=== PATIENT | male | born 2005 | race Caucasian/White ===

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

== ENCOUNTER 2025-01-11 11:30 | Outpatient (OUT) | payer OTHER, SELFPAY ==
--- NOTE | 2025-01-11 11:32 | XR_ITS ---
[address] [address] Patient Name: DARIN TOVAR MRN: [id number] date: 2005 Sex: M Assigned Patient Location: RAD Current Patient Location: [facility] Accession/Order Number: [id number] Exam Date: 01/11/2025 11:47 Report Date: 01/11/2025 11:47 At the request of: MERLINE CHAIDEZ MD Procedure: XR chest 2V Chest 2 views CLINICAL HISTORY: Acute maxillary sinusitis COMPARISON: Chest 05/25/2022 FINDINGS: Heart normal in size. Lungs are clear. No free air. XR/XR chest 2V IMPRESSION: NO ACUTE CARDIOPULMONARY ABNORMALITY. Impression dictated by: Cullen Morgan Jr., D.OPortillo 01/11/2025 11:47 AM Dictation Location: [place] [address] Electronically authenticated by: [id number] Y Date: 01/11/2025 11:47
== END 2025-01-11 11:31 | disposition home or self-care (01) ==
LOC: RAD 11:30
PROVIDERS: PCP Family Medicine; Visit Provider Family Medicine
DX: J01.00 Acute maxillary sinusitis, unspecified (principal)
CPT/HCPCS: 71046

== ENCOUNTER 2025-03-18 04:25 | Emergency (ER) | payer OTHER, SELFPAY ==
[2025-03-18 04:30] VITALS: BP 140/84; PULSE 90; TEMP 36.7; O2SAT 98; BMI 22.8
--- OUTSIDE RECORDS SUMMARY | 2025-03-18 04:32 | XMS_ITS | CCD ---
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 Name Role Phone Nabila Cheema Unavailable MENA SEQUEIRA Attending Unavailable HUA, MENA Consulting Unavailable HUA, MEAN Admitting Unavailable KAYLYNN, DR ERIKA Nevarez Primary Care Unavailable BETTY, CARLOS Consulting Unavailable CHAIDEZ, DR ERIKA Nevarez Admitting Unavailable CHAIDEZ, DR ERIKA Nevarez Attending Unavailable CHAIDEZ, DR ERIKA Nevarez Consulting Unavailable CHAIDEZ, DR ERIKA Nevarez Primary Care Unavailable CHAIDEZ, DR ERIKA Nevarez Admitting Unavailable CHAIDEZ, DR ERIKA Nevarez Attending Unavailable CHAIDEZ, DR ERIKA Nevarez Consulting Unavailable CHAIDEZ, DR ERIKA Nevarez Primary Care Unavailable CHAIDEZ, DR ERIKA Nevarez Primary Care Unavailable CHAIDEZ, DR ERIKA Nevarez Admitting Unavailable CHAIDEZ, DR ERIKA Nevarez Attending Unavailable CHAIDEZ, DR ERIKA Nevarez Consulting Unavailable CHAIDEZ, DR ERIKA Nevarez Primary Care Unavailable CHAIDEZ, DR ERIKA Nevarez Admitting Unavailable CHAIDEZ, DR ERIKA Nevarez Attending Unavailable WEST, DR MALGORZATA Adames Consulting Unavailable CHAIDEZ, DR ERIKA Nevarez Consulting Unavailable MISC, DR CAPPS Attending Unavailable MISC, DR CAPPS Consulting Unavailable MISC, DR CAPPS Admitting Unavailable CHAIDEZ, DR ERIKA Nevarez Primary Care Unavailable MISC, DR CAPPS Attending Unavailable MISC, DR CAPPS Consulting Unavailable MISC, DR CAPPS Admitting Unavailable CHAIDEZ, DR ERIKA Nevarez Primary Care Unavailable ERIKA CHAIDEZ Primary Care Physician [phone] ERIKA CHAIDEZ Referring Unavailable ERIKA CHAIDEZ Primary Care Unavailable ANTMADDIE HEDRICK Attending Unavailable CHAIDEZ PROVIDERERIKA Admitting Unavailab le CHAIDEZ PROVIDERERIKA Attending Unavailab le CHAIDEZ PROVIDER, ERIKA Referring Unavailab le AntMaddie hedrick Consulting Unavailable Maddie Mello Consulting Unavailable Erika Chaidez Unavailable Leatha Elena Unavailable MD Erika Chaidez Primary Care Provider [phone] MD Erika Chaidez Attending Provider MD Erika Chaidez Primary Care Provider [phone] KAM Jeff Attending Provider Erika Chaidez Primary Care Unavailable Erika Chaidez Attending Unavailable Erika Chaidez Admitting Unavailable Ashli Jeff Admitting Unavailable Ashli Jeff Attending Unavailable Erika Chaidez Primary Care Unavailable JAIME SAMS Attending Unavailable JAIME SAMS Attending Unavailable JAIME SAMS Attending Unavailable Erika Chaidez MD Primary Care Provider EricaacheLeatha alford APRN Attending Provider Erika Chaidez MD Attending Provider Allergies Allergy Classification Reported Allergen(s) Allergy Type Date of Onset Reaction(s) Facility (9 sources) Codeine; Translations: [CODEINE] Drug Allergy 12-05-2019 [facility] Repository (1 source) Codeine Drug Allergy [facility] Repository (1 source) NSAIDs Drug allergy (disorder) [facility] Repository (1 source) Codeine Drug Allergy 04-12-2024 [facility] Repository Medications Current Medications Medication Drug Class(es) Dates Sig (Normalized) Sig (Original) ARIPiprazole (7 sources) Atypical Antipsychotic Abilify A ctive cefdinir 300 mg oral capsule (3 sources) Cephalosporin Antibacterial Start: 01-10-2025 take 1 capsule by mouth twice daily Cefdinir 300 mg capsule Active 300 MG PO Twice daily January 10, 2025 12:00am Complies with drug therapy Start: 08-17-2022 Cefdinir 300 M G as directed Orally bid for 7 days Aug, Active cloNIDine (8 sources) Central alpha-2 Adrenergic Agonist cloNIDine Active fluticasone propionate 0.05 mg/actuat metered dose nasal spray (20 sources) Corticosteroid Start: 05-09-2024 take 2 spray(s) nasal route once daily Fluticasone Propionate 50 mcg/actuation spray,suspension Active 0 .ROUTE .COMPLEX May 09, 2024 11:32am INSTILL 2 SPRAYS INTO EACH NOSTRIL DAILY Complies with drug therapy Start: 04-11-2024 End: 05-09-2024 take 1 spray(s) nasal route once daily Fluticasone Propionate 50 mcg/actuation spray,suspension Discontinued 2 SPRAY INTRANASAL Daily April 11, 2024 12:00am May 09, 2024 11:32am administer into each nostril Start: 03-08-2024 End: 03-20-2024 Fluticasone Propionate 50 mcg/actuation spray,suspension Discontinued INTRANASAL March 08, 2024 12:00am March 20, 2024 11:05am Start: 05-20-2023 take 2 spray(s) nasa l route once daily Fluticasone Propionate 50 MCG/ACT 2 spray in each nostril Nasally Once a day for 30 days May, Active Start: 04-27-2021 take 2 spray(s) nasa l route once daily Fluticasone Propionate 50 MCG/ACT 2 sprays Nasally Once a day for 14 day(s) 2 sprays to each nostril daily until your symptoms improve Apr, Active hydrOXYzine hydrochloride 25 mg oral tablet (19 sources) Antihistamine Start: 11-09-2023 take 1 tablet by mouth once daily at bedtime Hydroxyzine Hcl 25 mg tablet Active 25 MG PO Daily at bedtime November 09, 2023 12:00am Complies with drug therapy hydrOXYzine HCl Active Morgan Hill (1 source) Morgan [place] Active lithium carbonate 300 mg oral capsule (11 sources) Start: 11-09-2023 take 1 capsule by mouth once daily at bedtime [place] Carbonate 300 mg capsule Active 300 MG PO Daily at bedtime November 09, 2023 12:00am Complies with drug therapy Medrol Dose Pack as directed (4 sources) Start: 04-27-2021 Medrol Dose Pack as directed as directed orally as directed for 6 days Apr, Active sertraline 100 mg oral tablet (20 sources) Serotonin Reuptake Inhibitor Start: 11-09-2023 take 1 tablet by mouth once daily Sertraline (Zoloft) 100 mg tablet Active 100 MG PO Daily November 09, 2023 12:00am Complies with drug therapy Start: 11-09-2023 End: 03-08-2024 Sertraline (Zoloft) 50 mg ta blet Discontinued 75 MG PO Daily November 09, 2023 12:00am March 08, 2024 12:42pm Zoloft Active Completed/Discontinued Medications Medication Drug Class(es) Dates Sig (Normalized) Sig (Original) amoxicillin 500 mg oral tablet (10 sources) Penicillin-class Antibacterial Start: 01-08-2025 End: 01-10-2025 take 1 tablet by mouth three times daily Amoxicillin 500 mg tablet Discontinued 500 MG PO Three times daily January 08, 2025 12:00am January 10, 2025 1:14pm Start: 03-08-2024 End: 03-20-2024 take 1 capsule by mouth twice daily Amoxicillin 500 mg capsule Discontinued 500 MG PO Twice daily 02 04March 08, 2024 12:00am March 20, 2024 10:39am amoxicillin 875 mg / clavulanate 125 mg oral tablet (10 sources) Penicillin-class Antibacterial Start: 04-12-2024 End: 09-22-2024 take 1 tablet by mouth twice daily Amoxicillin-Pot Clavulanate 875-125 mg tablet Discontinued 1 TAB PO Twice daily 02 04April 12, 2024 12:00am September 22, 2024 11:45am Start: 04-27-2021 take 1 tablet by sylvie th every twelve hours Amoxicillin-Pot Clavulanate 875-125 MG 1 tablet Orally every 12 hrs for 10 day(s) Apr, Active azithromycin 250 mg oral tablet (3 sources) Macrolide Antimicrobial Start: 11-07-2024 End: 01-08-2025 Azithromycin 250 mg tablet Discontinued 0 PO daily 6 5 November 07, 2024 12:00am January 08, 2025 9:14am Take 2 on day 1 and then take 1 for the next 4 days (days 2-5) mirtazapine 15 mg oral tablet (11 sources) Start: 11-09-2023 End: 03-20-2024 take 7.5 mg by mouth once daily at bedtime Mirtazapine (Remeron) 15 mg tablet Discontinued 7.5 MG PO Daily at bedtime November 09, 2023 12:00am March 20, 2024 11:05am sulfamethoxazole 800 mg / trimethoprim 160 mg oral tablet (10 sources) Dihydrofolate Reductase Inhibitor Antibacterial, Sulfonamide Antimicrobial Start: 03-20-2024 End: 04-12-2024 take 1 tablet by mouth twice daily Sulfamethoxazole- Trimethoprim 800-160 mg tablet Discontinued 1 TAB PO Twice daily March 20, 2024 12:00am April 12, 2024 10:41am Start: 06-19-2022 take 1 tablet by sylvie th every twelve hours Sulfamethoxazole-Trimethoprim 800-160 MG 1 tablet Orally Twice a day for 10 day(s) Jun, Active Problems Active Problems Problem Classification Problem Date Documented Date Episodic/Chronic Anxiety disorders (2 sources) Generalized anxiety disorder; Translations: [Generalized anxiety disorder] Onset: 04-23-2016 Chronic Cardiac dysrhythmias (1 source) Palpitations; Translations: [PALPITATIONS] Onset: 05-27-2022 Episodic Fever of unknown origin (7 sources) Fever; Translations: [Fever, unspecified] Onset: 04-12-2024 04-12-2024 Episodic Genitourinary symptoms and ill-defined conditions (1 source) Dysuria; Translations: [Dysuria] Episodic Immunizations and screening for infectious disease (4 sources) Contact with or exposure to other viral diseases; Translations: [Exposure to 2019 novel coronavirus] 03-08-2024 Episodic Lymphadenitis (12 sources) Mesenteric lymphadenitis; Translations: [Nonspecific mesenteric lymphadenitis] 11-09-2023 Episodic Malaise and fatigue (15 sources) Other fatigue; Translations: [Fatigue] Onset: 04-10-2022 Episodic Miscellaneous mental health disorders (1 source) Insomnia disorder related to another mental disorder; Translations: [Insomnia due to mental disorder] Onset: 01-26-2017 Chronic Mood disorders (4 sources) Major depressive disorder, recurrent severe without psychotic features; Translations: [YOLANDA DEPRESS RECURR SEV W/O PSYCH] Onset: 09-16-2021 Chronic Nausea and vomiting (10 sources) Nausea; Translations: [Nausea] 11-29-2023 Episodic Noninfectious gastroenteritis (4 sources) Gastroenteritis; Translations: [Noninfective gastroenteritis and colitis, unspecified] 09-23-2024 Episodic Other and unspecified benign neoplasm (9 sources) Hemangioma of liver; Translations: [Hemangioma of intra-abdominal structures] 11-29-2023 Episodic Other and unspecified benign neoplasm (1 source) Hemangioma of intra-abdominal structures; Translations: [Hemangioma of intra-abdominal structures] 11-29-2023 Episodic Other liver diseases (10 sources) Liver mass; Translations: [Hepatomegaly, not elsewhere classified] 11-09-2023 Episodic Other lower respiratory disease (6 sources) Persistent cough; Translations: [Persistent cough] 04-12-2024 Episodic Other lower respiratory disease (1 source) Chronic cough; Translations: [Chronic cough] Onset: 04-12-2024 Episodic Other nervous system disorders (1 source) Taste sense altered; Translations: [Parageusia] Episodic Other upper respiratory disease (1 source) Disorder of vocal cord; Translations: [Other diseases of vocal cords] Episodic Other upper respiratory infections (9 sources) Sinusitis; Translations: [Chronic sinusitis, unspecified] Onset: 04-27-2021 Resolved: 04-27-2021 Chronic Other upper respiratory infections (20 sources) Acute pharyngitis, unspecified; Translations: [Acute maxillary sinusitis, unspecified] Onset: 10-01-2015 Resolved: 04-27-2021 Episodic Otitis media and related conditions (18 sources) Otitis media; Translations: [Otitis media, unspecified, bilateral] 03-08-2024 Episodic Unclassified (1 source) PERSONAL HISTORY OF COVID-19; Translations: [PERSONAL HISTORY OF COVID-19] Onset: 05-27-2022 Unclassified (3 sources) CONTACT W/AND (SUSP) EXPOS COVID-19; Translations: [CONTACT W/AND (SUSP) EXPOS COVID-19] Onset: 07-03-2021 Unclassified (2 sources) Telehealth Audio/video Visit; Translations: [Telehealth Audio/video Visit] Onset: 10-02-2024 Unclassified (2 sources) Med Management; Translations: [Med Management] Onset: 08-14-2024 Viral infection (1 source) Disease caused by 2019-nCoV; Translations: [COVID-19] Past or Other Problems Problem Classification Problem Date Documented Date Episodic/Chronic Inflammation; infection of eye (except that caused by tuberculosis or sexually transmitteddisease) (1 source) Acute conjunctivitis; Translations: [Unspecified acute conjunctivitis, bilateral] Onset: 01-06-2016 Episodic Mycoses (1 source) Tinea corporis; Translations: [Tinea corporis] Onset: 02-28-2015 Episodic Nonspecific chest pain (5 sources) Chest pain, unspecified; Translations: [Chest pain] Onset: 02-01-2018 Episodic Other liver diseases (3 sources) Hepatomegaly, not elsewhere classified; Translations: [Other specified disorders of liver] Onset: 11-26-2023 11-09-2023 Episodic Unclassified (1 source) CONTACT W/AND (SUSP) EXPOS COVID-19; Translations: [CONTACT W/AND (SUSP) EXPOS COVID-19] Onset: 07-01-2021 Unclassified (1 source) Cough, unspecified type R05.9 Unclassified (1 source) Need for prophylactic vaccination and inoculation against unspecified single bacterial disease; Translations: [Need for prophylactic vaccination and inoculation against unspecified single bacterial disease] Onset: 02-01-2018 Unclassified (1 source) Vaccine product containing only acellular Bordetella pertussis and Clostridium tetani and Corynebacterium diphtheriae antigens (medicinal product); Translations: [Flpgwpxmqm-wxwsveo-y ertussis, combined [DTP] [DtaP]] Onset: 02-01-2018 Results Test Name Value Interpretation Reference Range Facility Documentationon 11-29-2024 Documentation [id number] Guido Tovar 2005 M Date Provider Department Center 11/29/2024 JAIME BROOKS [facility] PS[facility]CH Mick Heal No family history on file Normal [facility] Influenza virus B Ag [Presen ce] in Upper respiratory specimen by Rapid immunoassayon 11-07-2024 FLUBV Ag IA.rapid Ql (Nph) Negative [facility] No Panel Informationon 11-07 Influenza Type A (Rapid) Negative [facility] POC SARS CoV-2 Antigen Negative [facility] 36on 10-02-2024 36 Please send again Normal [facility] 37on 10-02-2024 37 Clinic Rules -Clinic rules include the no show policy, that termination from the clinic can be the result of missing 2 appointments in a row or 3 appointments in any 12 month period through either no-shows or cancellations with less than 24 hours' notice. Patient expressed understanding. - My information given to the patient and informed my hours, from 8:30am to 4:30pm and should get back to the patient within 24 business hours. Patient expressed understanding. - Patient made aware that in case of emergency-thoughts of , of self or others or patient begins experiencing side effects or hallucinations, call 911 or go to the closest emergency room. Patient expressed understanding. - Patient was also made aware of 24 hour access to psychiatric care available through [facility] Psychiatry clinic - call [phone] to leave a message with the physician (regular office hours are Wednesday-Wednesday 8:30am-4:30pm), and for emergencies after hours or on weekends call the hospital gas burner operator at [phone] and ask to talk to on-call front loader residential driver physician. Pharmacological management: - Increase Morgan Hill to 600 mg at bedtime for mood due to patient first reported hypomanic episode. In the future please ensure the patient continues to be on a mood stabilizer. - CONTINUE Hydroxyzine 25 mg (1-3 tabs) as needed for anxiety - Continue Zoloft 175 mg at night for Depression and Anxiety [facility] Behavioral Health Telemedici somers 10-02-2024 Behavioral Health Telemedicine [id number] Guido Tovar 2005 [facility] Provider Department [place] 10/02/2024 JAIME BROOKS [facility] PSYCH Mick Heal No family history on file Level of Service:13959 [place] OFFICE/OUTPATIENT ESTABLISHED MOD MDM 30 MIN () Reason for Visit and Comments: Med Management [[id number]] Telehealth Audio/video Visit [871] Normal [facility] Refillo 10-02-2024 Refill [id number] Guido Tovar 2005 M Date Provider Department [place] 10/02/2024 RUFINA BANDA [facility] PSYCH Mick Heal No family history on file Reason for Visit and Comments: Med Refill [[id number]] Normal [facility] [place] 09-29-2024 Refill [id number] Guido Tovar 2005 M Date Provider Department [place] 09/29/2024 JAIME BROOKS [facility] PSYCH Mick Heal No family history on file Reason for Visit and Comments: Med Refill [[id number]] [facility] 36on 09-04-2024 36 Attempted to call patient on 09/04/2024 at 1510 at [phone] and patient was unable to pickup the phone, and there was no option to leave a voicemail as his voicemail box has not been setup. I sent a reply to his [employer] message indicating possible manic/mixed mood episode, and discussed case with Dr. Cook. Plan: Restart Morgan Hill 300mg nightly Recommend patient reach out in 2-3 days with an update on how he is doing. Recommend patient obtain labs ordered October 2023 including CBC, CMP, and TSH with reflex. Stalin Mendoza MD PGY-3 Psychiatry Normal [facility] 37on 08-14-2024 37 Clinic Rules -Clinic rules include the no show policy, that termination from the clinic can be the result of missing 2 appointments in a row or 3 appointments in any 12 month period through either no-shows or cancellations with less than 24 hours' notice. Patient expressed understanding. - My information given to the patient and informed my hours, from 8:30am to 4:30pm and should get back to the patient within 24 business hours. Patient expressed understanding. - Patient made aware that in case of emergency-thoughts of , of self or others or patient begins experiencing side effects or hallucinations, call 911 or go to the closest emergency room. Patient expressed understanding. - Patient was also made aware of 24 hour access to psychiatric care available through [facility] Psychiatry clinic - call [phone] to leave a message with the physician (regular office hours are Wednesday-Wednesday 8:30am-4:30pm), and for emergencies after hours or on weekends call the hospital gas burner operator at [phone] and ask to talk to on-call front loader residential driver physician. Pharmacological management: - DISCONTINUE [place] 300 mg at bedtime for mood due to patient reported overall mood improvement and feels that lithium is no longer needed. - CONTINUE Hydroxyzine 25 mg (1-3 tabs) as needed for anxiety - Continue Zoloft 175 mg at night for Depression and Anxiety Normal [facility] Behavioral Health Telemedici [facility] 08-14-2024 Behavioral Health Telemedicine [id number] Guido Tovar 2005 M Date Provider Department Center 08/14/2024 Jackie4-JAIME SAMS [facility] PSYCH Mick Heal No family history on file Level of Service:03854 [place] OFFICE/OUTPATIENT ESTABLISHED MOD MDM 30 MIN (GC) Reason for Visit and Comments: Med Management [[id number]] [facility] [place] 08-06-2024 Refill [id number] Guido Tovar 2005 [facility] Provider Department [place] 08/06/2024 [id number] MENDOZA [facility] PSYCH Mick Heal No family history on file Reason for Visit and Comments: Med Refill [[id number]] [facility] 36on 07-27-2024 36 Pt scheduled 3-3 [facility] 36 Called and unable to lvm for pt to schedule appt for medication refills. not set up [facility] Refill [id number] Guido Tovar 2005 [facility] Provider Department [place] 07/27/2024 RUFINA BANDA [facility] PSYCH Mick Heal No family history on file Reason for Visit and Comments: Med Refill [[id number]] [facility] 07-24-2024 Refill [id number] Guido Tovar 2005 [facility] Provider Department [place] 07/24/2024 RUFINA BANDA [facility] PSYCH Mick Heal No family history on file Reason for Visit and Comments: Med Refill [[id number]] [facility] 07-22-2024 Refill [id number] Guido Tovar 2005 [facility] Provider Department [place] 07/22/2024 JAIME BROOKS [facility] PSYCH Mick Heal No family history on file Reason for Visit and Comments: Med Refill [[id number]] [facility] [place] 07-09-2024 Refill [id number] Guido Tovar 2005 Date Provider Department [place] 07/09/2024 JAIME BROOKS [facility] PSYCH Mick Heal No family history on file Reason for Visit and Comments: Med Refill [[id number]] [facility] 36on 06-21-2024 36 Per mom she needs refill of both dosages. If any questions please call [facility] [place] 06-21-2024 Refill [id number] Guido Tovar 2005 M Date Provider Department Center 06/21/2024 403JAIME SHIN C PSYCH Mick Heal No family history on file Normal [facility] [place] 06-12-2024 Refill [id number] Guido Tovar 2005 Date Provider Department [facility] No family history on file Reason for Visit and Comments: Med Refill [[id number]] Normal [facility] [place] 05-15-2024 Refill [id number] Guido Tovar 2005 Date Provider Department [place] 05/15/2024 [facility] Mick Heal No family history on file Reason for Visit and Comments: Med Refill [[id number]] [facility] 05-12-2024 Refill [id number] Guiod Tovar 2005 Date Provider Department [place] 05/12/2024 1286-MARÍA ELENA, HARMANDEEP [facility] PSY[facility] Mick Heal No family history on file Reason for Visit and Comments: Med Refill [[id number]] [facility] Refill [id number] Guido Tovar 2005 Date Provider Department [place] 05/12/2024 [facility] Heal No family history on file Reason for Visit and Comments: Med Refill [[id number]] Normal [facility] [place] 05-06-2024 Refill [id number] YuryGuido 2005 Date Provider Department Center 05/06/2024 1286-MARÍA ELENA, HARMANDEEP [facility] PSY[facility] Mick Heal No family history on file Reason for Visit and Comments: Med Refill [[id number]] Normal [facility] [place] 04-27-2024 Refill [id number] YruyGuido 2005 Date Provider Department [place] 04/27/2024 1286-MARÍA ELENA, HARMANDEEP [facility] PSY[facility] Mick Heal No family history on file Reason for Visit and Comments: Med Refill [[id number]] Normal [facility] No Panel InformationOrdered By: Ashli Jeff on 04-12-2024 Quick Strep (POC) [facility] XR chest 2V*on 04-12-2024 XR chest 2V* [facility] [place] [address] XRay Report Signed Patient: Guido Tovar MR#: [id number] 1 : 2005 Acct:[id number] Age/Sex: 18 / M ADM Date: 04/12/24 Loc: XDUC Room: Type: [facility] Attending Dr: Ashli Jeff APRN Copies to: Ashli Jeff APRN Ordering Provider: Ashli Jeff APRN Date of Service: 04/12/24 XR/XR chest 2V*: r/o pneumonia Chest 2 views CLINICAL HISTORY: Sore throat fever fatigue for 3 days COMPARISON: None FINDINGS: Heart normal in size. Lungs are clear. No free air. XR/XR chest 2V* IMPRESSION: NO ACUTE CARDIOPULMONARY ABNORMALITY. Impression dictated by: Cullen Morgan Jr., D.O.04/12/2024 12:08 PM Dictation Location: [place] [address] Transcribed By: [facility] 04/12/24 1208 Dictated By: Cullen Morgan Jr, DO 04/12/24 1206 Signed By: 04/12/24 1208 Normal [facility] [place] 03-24-2024 Refill [id number] Guido Tovar 2005 M Date Provider Department Center 03/24/2024 JAIME BROOKS [facility] PSYCH Mick Heal No family history on file Reason for Visit and Comments: Med Refill [[id number]] Normal [facility] Influenza virus A and B and SARS-CoV-2 (COVID-19) RNA panel - Respiratory system specon 03-08-2024 Influenza virus A and B RNA and SARS-CoV-2 (COVID-19) N gene panel NICHOLAS+probe (Resp) Negative [facility] Laboratory - Microbiology an d Antimicrobial susceptibilityon 03-08-2024 SARS-CoV-2 (COVID-19) RNA NICHOLAS+probe Ql (Unsp spec) Negative [facility] No Panel InformationOrdered By: Ashli Jeff on 03-08-2024 Quick Strep (POC) [facility] No Panel Informationon 03-08 POC Influenza B (NICHOLAS) Negative [facility] Ref[place] 02-23-2024 Refill [id number] YuryGuido 2005 M [facility] Provider Department Center 02/[facility] Mick Heal No family history on file Reason for Visit and Comments: Med Refill [[id number]] Normal [facility] [place] 01-25-2024 Refill [id number] YuryGuido 2005 M Date Provider Department Center 01/25/2024 [facility] Mick Heal No family history on file Reason for Visit and Comments: Med Refill [[id number]] Normal [facility] 37on 01-17-2024 37 Clinic Rules -Clinic rules include the no show policy, that termination from the clinic can be the result of missing 2 appointments in a row or 3 appointments in any 12 month period through either no-shows or cancellations with less than 24 hours' notice. Patient expressed understanding. - My information given to the patient and informed my hours, from 8:30am to 4:30pm and should get back to the patient within 24 business hours. Patient expressed understanding. - Patient made aware that in case of emergency-thoughts of , of self or others or patient begins experiencing side effects or hallucinations, call 911 or go to the closest emergency room. Patient expressed understanding. - Patient was also made aware of 24 hour access to psychiatric care available through [facility] Psychiatry clinic - call [phone] to leave a message with the physician (regular office hours are Wednesday-Wednesday 8:30am-4:30pm), and for emergencies after hours or on weekends call the hospital gas burner operator at [phone] and ask to talk to on-call front loader residential driver physician. - CONTINUE [place] 300 mg at bedtime for mood. Labs drawn on 09/16/21 (0.2 per report) Patient reports he is seeing his PCP annually for follow up and labs - Ordered [place] levels today. Patient strongly advised to get lithium/cmp labs prior to next visit. The patient was advised that lithium would no longer be prescribed if lab results are not given to database report writer or if lab results are not obtained prior to next visit. - May consider switching to Lamictal on follow up appointment - We discussed the risks, benefits, side effects, and alternatives to [place] including but not limited to, the risk of fatigue, sedation, weight gain, tremor, teratogenicity for females, potential for toxicity to kidney & risk for lithium toxicity, potential for medication interactions, and to not take these medications with alcohol or illicit drugs; informed consent was obtained. Patient was also informed that blood draws will need to be done intermittently to monitor medication. Patient expressed understanding. - CONTINUE Hydroxyzine 25 mg (1-3 tabs) as needed for anxiety - Continue Zoloft 175 mg at night for Depression and Anxiety -Formally discontinue Mirtazepine 7.5 mg po nightly for sleeping difficulties and mood. The patient reports that he only took mirtazapine for approximately 1 week due to worsening apathy. The patient reports improvement of symptoms after discontinuation [facility] 36on 12-23-2023 36 Spoke with patient, scheduled him for in-person appointment on 01/17/24 [facility] Refillon 12-22-2023 Refill [id number] Guido Tovar 2005 M Date Provider Department Center 12/22/2023 [facility] PS[facility] Mick Heal No family history on file Reason for Visit and Comments: Med Refill [[id number]] [facility] Documentationon 12-06-2023 Documentation [id number] PérezGuido spears 2005 M Date Provider Department Center 12/06/2023 [facility] Mick Heal No family history on file [facility] MR abdomen wo/w conon 2023 MR abdomen wo/[place] [address] MRI Report Signed Patient: Guido Tovar MR#: [id number] 1 : 2005 Acct:[id number] Age/Sex: 18 / M ADM Date: 11/26/23 Loc: MR Room: Type: [facility] Attending Dr: Erika Chaidez MD Copies to: Erika Chaidez MD Ordering Provider: Erika Chaidez MD Date of Service: 11/26/23 MR/MR abdomen wo/w con: R16.0 - Hepatomegaly, not elsewhere classified MRI abdomen with and without contrast TECHNIQUE: Routine with 13 cc of ProHance administered. HISTORY: Follow-up assessment. Ultrasound abdomen and CT of abdomen and pelvis obtained from outside institution. This was done 11/03/23. History of RIGHT upper abdominal pain. Assessment fo r possible lesion. The lesion measured with ultrasound examination measuring up to 19 mm. This is seen in the RIGHT portion of the liver. There is redemonstration of the hepatic lesion. This measures up to 19 mm. Diffuse increased T2 signal. No significant fat suppression of the lesion. Significant diffusion restriction identified. No significant signal loss with out of phase imaging. No obvious cystic characteristics. Bright signal present with ADC imaging. Nodular peripheral enhancement with fill- in. Findings likely represent hemangioma. No biliary duct dilatation. No additional hepatic lesion. No splenomegaly. Unremarkable pancreas adrenal glands and kidneys. No ascites. Unremarkable visualized bowel. Unremarkable gallbladder. No ascites. Unremarkable abdominal wall. Patent IVC and aorta. MR/MR abdomen wo/w con IMPRESSION: Redemonstration of the medial RIGHT hepatic lobe lesion with characteristics likely representing hemangioma. May be considered six-month follow-up assessment with ultrasound. Impression dictated by: Magdy Huizar M.D.11/26/2023 7:30 PM Dictation Location: [place] [address] Transcribed By: [facility] 11/26/231929 Dictated By: Magdy Huizar DO 11/26/231920 Signed By: 11/26/231929 Normal [facility] Basophils Auto (Bld) [#/Vol] on 11-03-2023 Basophils (Bld) [#/Vol] 0.1 10 3/uL 0.0-0.1 [facility] Basophils/100 WBC Auto (Bld) on 11-03-2023 Basophils/100 WBC (Bld) 1.3 % 0.2-2.0 [facility] Casts typing in urine sedime nt by light microscopyon 11-03-2023 Casts LM Nom (Urine sed) NONE SEEN #/LPF NONE SEEN [facility] Eosinophils/100 WBC Auto (Bl d)on 11-03-2023 Eosinophils/100 WBC (Bld) 4.8 % 0.9-7.0 [facility] Erythrocyte distribution wid th Auto (RBC) [Ratio]on 11-03-2023 Erythrocyte distribution width (RBC) [Ratio] 11.9 % 11.0-15.0 [facility] Estimated glomerular filtrat ion rate (GFR) non- Americanon 11-03-2023 GFR/1.73 sq M.predicted among non-blacks MDRD (S/P/Bld) [Vol rate/Area] mL/min/{1.73_m2} >=60 [facility] Globulin Calc (S) [Mass/Vol] on 11-03-2023 Globulin (S) [Mass/Vol] 2.9 g/dL [facility] Hematocrit Auto (Bld) [Volum e fraction]on 11-03-2023 Hematocrit (Bld) [Volume fraction] 45.1 % 42.0-54.0 [facility] Hemoglobin [Mass/volume] in Bloodon 11-03-2023 Hemoglobin (Bld) [Mass/Vol] 15.4 g/dL 14.0-18.0 [facility] Laboratory - Chemistry and C hemistry - challengeon 11-03-2023 Albumin [Mass/Vol] 4.3 g/dL 3.4-5.0 [facility] ALP [Catalytic activity/Vol] 81 U/L 46-116 [facility] ALT [Catalytic activity/Vol] 18 U/L 16-63 [facility] AST [Catalytic activity/Vol] 12 U/L 15-37 [facility] Bilirubin [Mass/Vol] 0.5 mg/dL 0.2-1.0 [facility] Calcium [Mass/Vol] 9.6 mg/dL 8.5-10.1 [facility] Chloride [Moles/Vol] 102 mmol/L 98-107 [facility] CO2 [Moles/Vol] 30.6 mmol/L 21.0-32.0 [facility] Creatinine [Mass/Vol] 0.89 mg/dL 0.70-1.30 [facility] GFR/1.73 sq M.predicted MDRD (S/P/Bld) [Vol rate/Area] mL/min/{1.73_m2} >=60 [facility] Glucose [Mass/Vol] 81 mg/dL 74-106 [facility] Lactate [Moles/Vol] 1.6 mmol/L 0.4-2.0 [facility] Lipase [Catalytic activity/Vol] 28.0 U/L 16.0-77.0 [facility] Potassium [Moles/Vol] 3.7 mmol/L 3.5-5.1 [facility] Protein [Mass/Vol] 7.2 g/dL 6.4-8.2 [facility] Sodium [Moles/Vol] 137 mmol/L 136-145 [facility] Urea nitrogen [Mass/Vol] 12.0 mg/dL 6.4-19.3 [facility] Urea nitrogen/Creatinine [Mass ratio] 13.5 mg/mg [facility] Bilirubin Ql (U) Negative NEGATIVE [facility] Glucose (U) [Mass/Vol] Negative NEGATIVE [facility] Ketones Ql (U) Negative NEGATIVE [facility] pH (U) 6.0 [pH] 5.0-9.0 [facility] Specific gravity (U) [Rel density] 1.025 1.005-1.025 [facility] Urobilinogen Qn (U) 0.2 {Humberto'U}/dL 0.2-1.0 [facility] - Hematology and Cell countson 11-03-2023 Immature granulocytes/100 WBC (Bld) 0.1 % 0.0-0.5 [facility] - Specimen inform ationon 11-03-2023 Appearance (U) CLEAR CLEAR [facility] Color (U) YELLOW YELLOW [facility] - Urinalysison Leukocyte esterase Test strip Ql (U) Negative NEGATIVE [facility] Nitrite Ql (U) Negative NEGATIVE [facility] Protein Ql (U) Negative NEG/TRACE [facility] Leukocytes [#/volume] correc lm for nucleated erythrocytes in Blood by Automated counon 11-03-2023 WBC corrected for nucl RBC Auto (Bld) [#/Vol] 6.8 10 3/uL 4.0-11.0 [facility] Lymphocytes Auto (Bld) [#/Vo l]on 11-03-2023 Lymphocytes (Bld) [#/Vol] 2.2 10 3/uL 1.2-3.8 [facility] Lymphocytes/100 WBC Auto (Bl d)on 11-03-2023 Lymphocytes/100 WBC (Bld) 32.4 % 20.5-60.0 [facility] MCH Auto (RBC) [Entitic mass ]on 11-03-2023 MCH (RBC) [Entitic mass] 30.4 pg 25.9-34.0 [facility] MCHC Auto (RBC) [Mass/Vol]on 11-03-2023 MCHC (RBC) [Mass/Vol] 34.1 g/dL 29.9-35.2 [facility] MCV Auto (RBC) [Entitic vol] on 11-03-2023 MCV (RBC) [Entitic vol] 89.1 fL 80.0-94.0 [facility] Monocytes Auto (Bld) [#/Vol] on 11-03-2023 Monocytes (Bld) [#/Vol] 0.7 10 3/uL 0.3-0.8 [facility] Monocytes/100 WBC Auto (Bld) on 11-03-2023 Monocytes/100 WBC (Bld) 10.9 % 1.7-12.0 [facility] Mucus LM Ql (Urine sed)on Mucus Ql (Urine sed) TRACE NONE SEEN [facility] Neutrophils Auto (Bld) [#/Vo l]on 11-03-2023 Neutrophils (Bld) [#/Vol] 3.4 10 3/uL 1.4-6.5 [facility] Neutrophils/100 WBC Auto (Bl d)on 11-03-2023 Neutrophils/100 WBC (Bld) 50.5 % 43.0-75.0 [facility] No Panel Informationon 11-02 Eosinophils # (Auto) 0.3 10 3/uL 0.0-0.7 [facility] Immature Granulocyte # (Auto) 0.01 10 3/uL 0.00-0.03 [facility] Urine Bacteria SMALL #/HPF NONE SEEN [facility] Urine Culture Reflexed YES [facility] Urine Microscopic Review YES [facility] Urine Occult Blood MODERATE NEGATIVE [facility] Urine Other Crystals None Seen #/HPF None Seen [facility] Urine RBC 5-10 #/HPF 0-2 [facility] Urine Squamous Epithelial Cells FEW #/LPF NONE/RARE [facility] Urine WBC NONE SEEN #/HPF NONE SEEN [facility] Platelet mean volume Auto (B ld) [Entitic vol]on 11-03-2023 Platelet mean volume (Bld) [Entitic vol] 9.4 fL 9.5-13.5 [facility] Platelets Auto (Bld) [#/Vol] on 11-03-2023 Platelets (Bld) [#/Vol] 253 10 3/uL 150-450 [facility] RBC Auto (Bld) [#/Vol]on RBC (Bld) [#/Vol] 5.06 10 6/uL 4.70-6.10 [facility] Serum or plasma albumin/glob ulin mass ratioon 11-03-2023 Albumin/Globulin [Mass ratio] 1.5 {ratio} [facility] Serum or plasma anion gap de terminationon 11-03-2023 Anion gap [Moles/Vol] 8.1 mmol/L [facility] Coding Summary.on 06-09-2022 Coding Summary. CD:[id number] ONj8xTj+PGhlYWQ+PE1 FTEKtK27xfVXaxW8PV1 hGOV1EUDSYHEOKIT3RX D4qmWJ1OFcqS2DnztNp LpfqkDSpCD69EKx8OMF 4lUioQRnxrE2ldJDcY5 a0DrIpNO62kX78FKtcZ GKnJyZ5LvFxepfbvUTe B4dxRzFkiNGfFfz+PHR hYmxlIHdpZHRoPScxMD UnTlVhlYpbFD0kKb3uB GVyLWNvbGxhcHNlOiBj q4xeKQGpLHbuLF2ouFg lI3RzlVM8LREkt2o4Qq 48dHI+LFOwERH9yCosN Rqte184IvLjy6xvGJI9 fGTsJPicOPM7P32ga4Z 9BTOpBGAxOMD5sNU0nF 1qvFjjuuztN2NipWYbA lK1IGN7lOKuxG8lhVnq mkxfcP6hUrj+G47GUX9 JAWVXAT8PVzh3J4LwEd wvdHI+JM73RPHaCF11t CExiBApb9viqGl6BjSb FLGwRKW4jFvtEXkzo9A yECWmS42whKBsv0F3FF FfcYqpeDQwUdOdiIF9o Y3wDTzfclvjj3cpmima Uvayq7pjfb75pV83D93 yLPuiKFAvFEQ0GMPaIA VxnHcejv0ixW7mCw7+I Aitf7irm9thgLg5PwCh HBYixwMfeAybIVW9a8A vNr73G4TbiOgek0UaMb f9pz25xTOfm6D5zAV8R YgfAWOqlZ1fNEnhEhA3 OBKvKkAxbW92sAIdHQv oXh0yiMbamHnpGC9jCH WrajvyGXEexK7oIKFmz XGwcEnkXB6hSTQkzdio m270LwIaCOW5ZLClnNP mK3NpwP6mTcWfYWSgBD WjC1EknKQpZKblB352S LfdBlG3TPMvpwEfR8Dm SWBntVapVlZ9s7C8Qv5 Pv7DehlyeJSG5MFsaFK EcSuN9ZfQuBcT5Z9QxA yx9PIKrgIwiTR2zQ9Gr OSIccbvguvipnOO4IDD uSZYtiM15pIWfCXuoBh 0qc5Y3r472XVOnQWJnz Z36Tq6sxHehMSUlwGJR aC2rcxkrb8omhzljImI cTQHhCBg6CQc5LCVoiY quCiStQQB8DlN3MMT3j LBuhY0fwDkymymwjN1a Oyc+P27gqN8sHLP2OAP 1igwgKYUtfvMpGZ24EO 65L7BpRmunwTJcuOG+P HQftsDzdUbaSR0mAcSw v7gkr6JtSKrqM8DgFKI bOGgaJtt2PVEfUAE0fH A2uE2nEUEfPKqah0Z6q DG6U0UpsbOmmh9bz3jt DNGrCHizM68tsHQhm3D 2GNWmuIR4VTPyoIjiCx YxtQ56Vwk+PGNvbGdyb 8UcXbozv0nck4yvmIp8 IjMwJSIgdmFsaWduPSJ 9l7ReOh88Y09eEIfjNX RoPSIxNSUiIHZhbGlnb p0iyC2fWw4+PGNvbCB3 oHT3aK3cPFEcZyS6GNi eL680JcRlaOUtVdqzi0 jhg8gbxWb5KqBpWUZbm dAiwPfkDST4w1DpYq82 F10mACisGZVsTELyIUO oJIMquQhqxq2nhW0tKj 8+RM7ad0wssh27qW29x HI+QSNzTCD0jRqfOTso IVIypQ5wTGlaJbV7CLV pElWgtG65jLSpDTpmBg 3fqHyobNkuXV2wJGMky ampo443LuXqq1taHWIf sFFhQHfeOWH8D80yt5F 7VJAiRPNiAXO6eJH8cA 1hbGlnbjogbGVmdDsgd vAayAphIYuzIXyiJ221 IHRvcDsnPlBhdGllbnQ jCqQuWVg4X5IrRip4RB XkbBijFR4sfBYuDWruC o4fnNxtdTndKY0vQHJr dsagn807BgFyw4tyAEB syRKoSNllXCN3I08gq9 Y6CVIzTCRdDGC7wAU5q Z4qwYsevxlbvOJntVsf gzDfcXdtTIwaACuwM49 6IHRvcDsnPkJpcnRoIE MjtJS0RI50TU00cTCrc 9H1rPJ4D2UbHQUboojs vwfnyRP1RTNpNAZdsW6 0Fq3iwKbpGt0bGPRoUJ D5YXNbnNEaE9VfxV1fM yJaEKLgJDOgF8ZjnKOr WArvD873MAfuAkW7GSF vlpPnI3IiWHMcaGrqFq Q9u8N5Yr6GT0K9WY69G O38rKXoa5O4wYZ0I3Tv VPRktwmggghljOP6XRG mRYVzdK51Pd6avRjlOi 2uPTMqWHS0MMXwzQOnD 0SzpU0zNqAfYQQlXVHp F6NhtPWaYKbyZ180DQi yBbE5EQFfalYeW6CoPM SjvPenBoC3o9L3Nw2CD Nx8DE34KK73rFWzn5R8 zIZ0E9TqVEZyuontypg rdXG8WFDbQYKzgK79Nj 0dkPrlJt9hGFFdRFR5Y DJahXSeJ0JldY3tYrBx PJSjBWKcI2JmkSGoWXb mY583GRguCnK6LVLnap JpS9MvFTMrkIqrTkM6n 2L8Yg5EEGBsVJ88KIJ1 lOO0LW99RQ78I2OmOww vdGFibGU+PHRhYmxlIH dpZHRoPScxMDAlJyBzd OaqJY2iGx8tNNPvKHXe yOrzmBEcTvGbq5pnNKG iKGywBO7pmRamW7AkjF R7YANcy7q4Zn42Y68qW 3JvdXA+FVCvuFW6gIB6 fO8uQiNzTqY3JQvvW83 4UdIqkVBqGoffr7xml7 zqsNz0UcH5OICrepRmt OiqPBC4s8DeIj17O90i IHdpZHRoPSIxNSUiIHZ ubKpnfm7qvR0pEs9+PG IseDE5aTS3jT6tAySjL jI1QBadG211NgQexLIm Ladnz5xjb0kyoNr1EnL wGMCqpfEwxLpbCWA2z1 UdSl36J9AuuGava8QkC qt5bk92yIZjk1L0aWP7 V8KsZJOrxbpcsUKliEg cPN7tKYLjofexULTpbJ 7tCFCvF6a6GdSnVyR9S RnzT0YfrqD9KFNhoPJq ISefWZY2F04ey4C8RDA kECSuVAG8fIS9rF8vhZ lnbjogbGVmdDsgdmVyd BgrXPzqGQpvL050RJMk cHvrHJPahR6cSJJmrHC qyIhmCS3cWTBcicpcTc dXP7ZfSHFPIqdQJxPEF X7JMWV7G9NcOkz6URAv iKxkMZ3bqZYqPEetTb3 tnQrbxJpsUV6cHOZidf jfHPNhoP4fCNTuhWGfp ZbzNU8cDTItgmeqr831 TmPqAFD6EYFoqWGhT5K ktT3pKhBuYVLqUXCqZ0 SmuXXzAWgxM500ZWfgS dB7CAYzhyDhL3VkEWFf qLueExW6e5L9Du0nNV8 vWb1kCUQ8OP06MV84xX Icq6I6uSJ6Y0NkKSYvz mzaswoojCT6XMWlGQXq bQ58fFCtWEggNx9qv9G 1a978MBJzJIIhfM79Sd 0voSbqIACijPNIkS5vy ngsj4bjbeosXuKhRWWz TSr5DJx2GLZbzIjmDpQ zYSP4GuG3DSB0tYKqhG 0drDldrlekuR2jXkk+M UuzTUXtkeW7L3VdMao3 FAProAgmHQ9ydXWjQVf vXt9jrQkzyQetXN5vLR FyfbxrNLXvwT4yJSGkg WYqpKhnPC7gPXXogywz t563ZpWtAML3GXGmpDR qZ4DwgC8tCyRaXDQmPI QjS8KhyCVhZAumE071I JauKcQ6GSQrdfAgE3Hq GTFwsMozMgW7f8S0Pq3 QIKsdFU62TB70mZGka3 M7fLQ2U5XsOYLxxrnmf kkdhTE2NGXoRGPsyC24 mGDmXOloLs6pc4K1c25 7MRDsVHEgyK85Xu8tsE slSQUkqUADkX7zbcfex 0ejeagkEfDvDUMdXSu0 RUv9TUOxfSejDwDfLWH 9ReP6FOF3tSXzcE6wxN guohkqeS3sCzb+T3V0c CI4tNGvtRpzuPH+PC90 ny53F0KeWtqdJmi7RRU zLYN9gBY1eZ1pXLTbJY kis6F6pVH1O0CbgbTul h7jp4enMMQhNGyrY05j hWXhk2P8JWZeeBU9VLM ltNxrIdLzoK66Txo+PG PmaDzjt7SgSzrof5gsu 4pptTd1GlAbDWCnkqFr aOxpKKG0f5MuNy38Q25 sIHdpZHRoPSIzMCUiIH YitMmsqu2ekU1kYk5+P CQviAQ1fYQ5aY0wMlZq PcU6VRhrP334CxYpiHF dMmemq7qye1gshDm8Ot DiBSMfuvXlgQcwMJM5b 6DdCn90R4DziBdfo8Ik Idx7jc49nWJgw0J1fNO 3C4HoNEQnrushjTGfdU luEP2fSRGajiphXEGmk X9mJJEeL1b3KyKoZjB1 WEhoW2MnwlB7BILggNF bOKLxwZXKdF9azkfjz8 lrkpkvKhHnFPGhNQn6L Kc6KKWkjXehYgWwSHM6 QhG7GWH2vMDyaF4paPn titlvqR0cTqi+UGh5c2 wskBNaON3ouZJ9ZF81H K99gBZwx8O4uMB0B4Uw OJFxnlvzzsuryJA6XID zCZQjcC50Md4spUffAm 9jQVSgVGK0IQGgqNRlX 4PxeJ8cPuMsMDLiQROa K4GusOFdMPqbT739XWb gPwN4QAYdkbRsS0PrQS IeuKyxGwX4r8B5Ue9YD F82OZ22LQ03dGGaq5K6 xMS4U3WeUZGgcuumnnn aaBO1YNNgWTTnbR01Er 7dcIljJr3sISUsGBB6C FUuqIMtP7VorK2uNmEr UJTaKOVsU1HedPOaFEl gQ037KLecWkM0TZBmfh GwH5AtGJGidFejLlD7a 6M7Bz5COf58ZS31ZT37 zDDlw3K3vAC5J8PqBPP axfmhuuorkRV1YUHuAO VkxE42Ju0wdNzdNv1sY HQuWQQ1MIEgaYVhR5Pv zF6jSgDwZFRzOOKpD8Z cgMRwONxkI860AFllZf S9TFSwrcIxF1KcOCCmo PocCyI3j1C7Cp9CUUja kuk4X2HtForfpBF+PC9 7CTVyOT02bDStcAMsk7 tbdQa8RrVdOLXvPHA5u QjnRMwtz2ObXGIvI93h bGFw (more content not included)... Normal [facility] Consent for Treatmenton 05-15 Consent for Treatment [id number] Normal [facility] LITHIUMon 05-26-2022 [place] (Eskalith(R)), Serum 0.2 mmol/L Critically low 0.5-1.2 [facility] Comment on above: Result Comment: A co ncentration of 0.5-0.8 mmol/L is advised for long-term use; concentrations of up to 1.2 mmol/L may be necessary during acute treatment. Detection Limit = 0.1 <0.1 indicates None Detected Performed By: #### L ITHIUM #### [facility] [address] [place] [address] Dr. Praneeth Diallo CARDIAC BIPIN ADMITon 022 CK [Catalytic activity/Vol] 46 U/L Normal 39-308 [facility] Comment on above: Performed By: #### C BLU, CMADM #### [facility] [address] [place] [address] Dr. Praneeth Diallo CK.MB [Mass/Vol] 0.50 ng/mL Normal <=3.60 [facility] Comment on above: Performed By: #### C BLU, CMADM #### [facility] [address] [place] [address] Dr. Praneeth Diallo HSTROP 6.2 pg/mL Normal 4.0-76.1 [facility] Comment on above: Result Comment: CUT- OFF POINTS HAVE BEEN ESTABLISHED BASED ON THE FOURTH UNIVERSAL DEFINITIONS OF MYOCARDIAL INFARCTION. THE UPPER REFERENCE LIMIT (URL) OF TROPONIN, DEFINED THE 99TH PERCENTILE OF cTnI DISTRIBUTION IN A REFERENCE POPULATION, HAS BEEN CONFIRMED THE DECISION THRESHOLD FOR NE DIAGNOSIS. Performed By: #### C BLU, CMADM #### [facility] [address] [place] [address] Dr. Praneeth Diallo DIGNA 23 ng/mL Normal 16-96 [facility] Comment on above: Performed By: #### C BUL, CMADM #### [facility] [address] [place] [address] Dr. Praneeth Diallo CBC AUTO DIFFon 05-25-2022 BASO # 0.1 103/ul Normal 0.0-0.1 [facility] Comment on above: Performed By: #### L ITHIUM #### [facility] [address] [address] [address] Praneeth Diallo Basophils/100 WBC (Bld) 1.3 % Normal 0.2-2.0 [facility] Comment on above: Performed By: #### L ITHIUM #### [facility] [address] [place] [address] [address] Praneeth Diallo EO # 0.2 103/ul Normal 0.0-0.7 [facility] Comment on above: Performed By: #### L ITHIUM #### [facility] [address] [address] [address] Praneeth Diallo Eosinophils/100 WBC (Bld) 2.8 % Normal 0.9-7.0 [facility] Comment on above: Performed By: #### L ITHIUM #### [facility] [address] [address] [address] Praneeth Diallo Erythrocyte distribution width (RBC) [Ratio] 11.8 % Normal 11.0-15.0 [facility] Comment on above: Performed By: #### L ITHIUM #### [facility] [address] [address] [address] Praneeth Diallo Hematocrit (Bld) [Volume fraction] 45.5 % Normal 42.0-54.0 [facility] Comment on above: Performed By: #### L ITHIUM #### [facility] [address] [address] [address] Praneeth Diallo Hemoglobin (Bld) [Mass/Vol] 16.1 g/dL Normal 14.0-18.0 [facility] Comment on above: Performed By: #### L ITHIUM #### [facility] [address] [address] [address] Praneeth Diallo IG # 0.02 10e3/ul Normal 0.00-0.03 [facility] Comment on above: Performed By: #### L ITHIUM #### [facility] [address] [address] [address] Praneeth Diallo IG % 0.3 % Normal 0.0-0.5 [facility] Comment on above: Performed By: #### L ITHIUM #### [facility] [address] [address] [address] Praneeth Diallo LYMPH # 1.8 103/ul Normal 1.2-3.8 [facility] Comment on above: Performed By: #### L ITHIUM #### [facility] [address] [address] [address] Praneeth Diallo Lymphocytes/100 WBC (Bld) 29.2 % Normal 20.5-60.0 [facility] Comment on above: Performed By: #### L ITHIUM #### [facility] [address] [address] [address] Praneeth Diallo MANUAL DIFF REQ NO Normal [facility] Comment on above: Performed By: #### L ITHIUM #### [facility] [address] [address] [address] Praneeth Diallo MCH (RBC) [Entitic mass] 30.7 pg Normal 25.9-34.0 [facility] Comment on above: Performed By: #### L ITHIUM #### [facility] [address] [address] [address] Praneeth Diallo MCHC (RBC) [Mass/Vol] 35.4 g/dL Critically high 29.9-35.2 [facility] Comment on above: Performed By: #### L ITHIUM #### [facility] [address] [address] [address] Praneeth Diallo MCV (RBC) [Entitic vol] 86.8 fL Normal 76.3-90.1 [facility] Comment on above: Performed By: #### L ITHIUM #### [facility] [address] [address] [address] Praneeth Diallo MONO # 0.6 103/ul Normal 0.3-0.8 [facility] Comment on above: Performed By: #### L ITHIUM #### [facility] [address] [address] [address] Praneeth Diallo Monocytes/100 WBC (Bld) 9.6 % Normal 1.7-12.0 [facility] Comment on above: Performed By: #### L ITHIUM #### [facility] [address] [address] [address] Praneeth Diallo NEUT # 3.4 103/ul Normal 1.4-6.5 [facility] Comment on above: Performed By: #### L ITHIUM #### [facility] [address] [address] [address] Praneeth Diallo Neutrophils/100 WBC (Bld) 56.8 % Normal 43.0-75.0 [facility] Comment on above: Performed By: #### L ITHIUM #### [facility] [address] [address] [address] Praneeth Diallo Platelet mean volume (Bld) [Entitic vol] 9.2 fL Critically low 9.5-13.5 [facility] Comment on above: Performed By: #### L ITHIUM #### [facility] [address] [address] [address] Praneeth Diallo PLT 248 103/ul Normal 150-450 [facility] Comment on above: Performed By: #### L ITHIUM #### [facility] [address] [address] [address] Praneeth Diallo RBC 5.24 106/ul Normal 3.30-5.40 [facility] Comment on above: Performed By: #### L ITHIUM #### [facility] [address] [address] [address] Praneeth Diallo WBC 6.0 103/ul Normal 4.0-11.0 [facility] Comment on above: Performed By: #### L ITHIUM #### [facility] [address] [address] [address] Praneeth Diallo PROF 14(COMP METB)on 022 Albumin [Mass/Vol] 4.5 g/dL Normal 3.4-5.0 [facility] Comment on above: Performed By: #### C MP, CMADM #### [facility] [address] [address] [address] Praneeth Diallo Albumin/Globulin [Mass ratio] 1.5 {ratio} Normal [facility] Comment on above: Performed By: #### C MP, CMADM #### [facility] [address] [address] [address] Praneeth Diallo ALP [Catalytic activity/Vol] 86 U/L Normal 65-260 [facility] Comment on above: Performed By: #### C MP, CMADM #### [facility] [address] [address] [address] Praneeth Diallo ALT [Catalytic activity/Vol] 11 U/L Critically low 16-63 [facility] Comment on above: Performed By: #### C MP, CMADM #### [facility] [address] [address] [address] Praneeth Diallo Anion gap [Moles/Vol] 8.2 mmol/L Normal [facility] Comment on above: Performed By: #### C BLU, CMADM #### [facility] [address] [address] [address] Praneeth Diallo AST [Catalytic activity/Vol] 12 U/L Critically low 15-37 [facility] Comment on above: Performed By: #### C BLU, CMADM #### [facility] [address] [address] [address] Praneeth Diallo Bilirubin [Mass/Vol] 0.4 mg/dL Normal 0.2-1.0 [facility] [facility] Comment on above: Performed By: #### C BLU, CMADM #### [facility] [address] [address] [address] Praneeth Diallo Calcium [Mass/Vol] 9.3 mg/dL Normal 8.5-10.1 [facility] Comment on above: Performed By: #### C MP, CMADM #### [facility] [address] [address] [address] Praneeth Diallo Chloride [Moles/Vol] 102 mmol/L Normal 98-107 [facility] Comment on above: Performed By: #### C BLU, CMADM #### [facility] [address] [address] [address] Praneeth Diallo CO2 [Moles/Vol] 29.8 mmol/L Normal 21.0-32.0 [facility] Comment on above: Performed By: #### C MP, CMADM #### [facility] [address] [place] [address] Dr. Praneeth Diallo Creatinine [Mass/Vol] 0.83 mg/dL Normal 0.70-1.30 [facility] Comment on above: Performed By: #### C MP, CMADM #### [facility] [address] [address] [address] Praneeth Diallo Globulin (S) [Mass/Vol] 3.0 g/dL Normal [facility] Comment on above: Performed By: #### C BLU, CMADM #### [facility] [address] [place] [address] Dr. Praneeth Diallo Glucose [Mass/Vol] 82 mg/dL Normal 74-106 [facility] Comment on above: Performed By: #### C BLU, CMADM #### [facility] [address] [place] [address] Dr. Praneeth Diallo Potassium [Moles/Vol] 4.0 mmol/L Normal 3.5-5.1 [facility] Comment on above: Performed By: #### C BLU, CMADM #### [facility] [address] [place] [address] Dr. Praneeth Diallo Protein [Mass/Vol] 7.5 g/dL Normal 6.4-8.2 [facility] Comment on above: Performed By: #### C MP, CMADM #### [facility] [address] [place] [address] Dr. Praneeth Diallo Sodium [Moles/Vol] 136 mmol/L Normal 136-145 [facility] Comment on above: Performed By: #### C MP, CMADM #### [facility] [address] [place] [address] Dr. Praneeth Diallo Urea nitrogen [Mass/Vol] 13.0 mg/dL Normal 6.4-19.3 [facility] Comment on above: Performed By: #### C BLU, CMADM #### [facility] [address] [place] [address] Dr. Praneeth Diallo Urea nitrogen/Creatinine [Mass ratio] 15.7 mg/mg Normal [facility] Comment on above: Performed By: #### C BELEN HURT #### [facility] [address] [place] [address] Dr. Praneeth Diallo Physician Orderon 05-25-2022 Physician Order [id number] Normal [facility] XR CHEST 1 Von 05-25-2022 XR CHEST 1 V EXAM: XR CHEST 1 V at 1145 hours HISTORY: CHEST PAIN, UNSPECIFIED COMPARISON: 04/09/2022 TECHNIQUE: AP upright portable chest x-ray FINDINGS: The heart is not enlarged and the vasculature is not distended. No acute infiltrate, effusion or pneumothorax is identified. The osseous structures are grossly intact. IMPRESSION: No acute infiltrate or evidence of cardiac decompensation. The overall appearance of the chest is essentially unchanged. Electronically authenticated by: CARLOS HERNÁNDEZ Date: 2022-05-25 12:03 Normal [facility] CBC AUTO DIFFon 04-10-2022 BASO # 0.1 103/ul Normal 0.0-0.1 [facility] Comment on above: Performed By: #### L ITHIUM #### [facility] [address] [place] [address] Dr. Praneeth Diallo Basophils/100 WBC (Bld) 1.1 % Normal 0.2-2.0 [facility] Comment on above: Performed By: #### L ITHIUM #### [facility] [address] [place] [address] Dr. Praneeth Diallo EO # 0.2 103/ul Normal 0.0-0.7 [facility] Comment on above: Performed By: #### L ITHIUM #### [facility] [address] [place] [address] Dr. Praneeth Diallo Eosinophils/100 WBC (Bld) 3.2 % Normal 0.9-7.0 [facility] Comment on above: Performed By: #### L ITHIUM #### [facility] [address] [place] [address] Dr. Praneeth Diallo Erythrocyte distribution width (RBC) [Ratio] 11.9 % Normal 11.0-15.0 [facility] Comment on above: Performed By: #### L ITHIUM #### [facility] [address] [place] [address] Dr. Praneeth Diallo Hematocrit (Bld) [Volume fraction] 45.7 % Normal 42.0-54.0 [facility] Comment on above: Performed By: #### L ITHIUM #### [facility] [address] [place] [address] Dr. Praneeth Diallo Hemoglobin (Bld) [Mass/Vol] 15.6 g/dL Normal 14.0-18.0 [facility] Comment on above: Performed By: #### L ITHIUM #### [facility] [address] [place] [address] Dr. Praneeth Diallo IG # 0.02 10e3/ul Normal 0.00-0.03 [facility] Comment on above: Performed By: #### L ITHIUM #### [facility] [address] [place] [address] Dr. Praneeth Diallo IG % 0.3 % Normal 0.0-0.5 [facility] Comment on above: Performed By: #### L ITHIUM #### [facility] [address] [place] [address] Dr. Praneeth Diallo LYMPH # 1.9 103/ul Normal 1.2-3.8 [facility] Comment on above: Performed By: #### L ITHIUM #### [facility] [address] [place] [address] Dr. Praneeth Diallo Lymphocytes/100 WBC (Bld) 28.9 % Normal 20.5-60.0 [facility] Comment on above: Performed By: #### L ITHIUM #### [facility] [address] [place] [address] Dr. Praneeth Diallo MANUAL DIFF REQ NO Normal [facility] Comment on above: Performed By: #### L ITHIUM #### [facility] [address] [place] [address] Dr. Praneeth Diallo MCH (RBC) [Entitic mass] 30.4 pg Normal 25.9-34.0 [facility] Comment on above: Performed By: #### L ITHIUM #### [facility] [address] [place] [address] Dr. Praneeth Diallo MCHC (RBC) [Mass/Vol] 34.1 g/dL Normal 29.9-35.2 [facility] Comment on above: Performed By: #### L ITHIUM #### [facility] [address] [place] [address] Dr. Praneeth Diallo MCV (RBC) [Entitic vol] 88.9 fL Normal 76.3-90.1 [facility] Comment on above: Performed By: #### L ITHIUM #### [facility] [address] [place] [address] Dr. Praneeth Diallo MONO # 0.7 103/ul Normal 0.3-0.8 [facility] Comment on above: Performed By: #### L ITHIUM #### [facility] [address] [place] [address] Dr. Praneeth Diallo Monocytes/100 WBC (Bld) 9.8 % Normal 1.7-12.0 [facility] Comment on above: Performed By: #### L ITHIUM #### [facility] [address] [place] [address] Dr. Praneeth Diallo NEUT # 3.8 103/ul Normal 1.4-6.5 [facility] Comment on above: Performed By: #### L ITHIUM #### [facility] [address] [place] [address] Dr. Praneeth Diallo Neutrophils/100 WBC (Bld) 56.7 % Normal 43.0-75.0 [facility] Comment on above: Performed By: #### L ITHIUM #### [facility] [address] [place] [address] Dr. Praneeth Diallo Platelet mean volume (Bld) [Entitic vol] 9.5 fL Normal 9.5-13.5 [facility] Comment on above: Performed By: #### L ITHIUM #### [facility] [address] [place] [address] Dr. Praneeth Diallo PLT 266 103/ul Normal 150-450 [facility] Comment on above: Performed By: #### L ITHIUM #### [facility] [address] [place] [address] Dr. Praneeth Diallo RBC 5.14 106/ul Normal 3.30-5.40 [facility] Comment on above: Performed By: #### L ITHIUM #### [facility] [address] [place] [address] Dr. Praneeth Diallo WBC 6.6 103/ul Normal 4.0-11.0 [facility] Comment on above: Performed By: #### L ITHIUM #### [facility] [address] [place] [address] Dr. Praneeth Diallo MONOon 04-10-2022 Monocytes (Bld) [#/Vol] Negative Normal NEGATIVE [facility] Comment on above: Performed By: #### M CARSON #### [facility] [address] [place] [address] Dr. Praneeth Diallo PROF CHEM 8 (BAS METB)on Anion gap [Moles/Vol] 8.7 mmol/L Normal [facility] Comment on above: Performed By: #### L ITHIUM #### [facility] [address] [place] [address] Dr. Praneeth Diallo Calcium [Mass/Vol] 9.4 mg/dL Normal 8.5-10.1 [facility] Comment on above: Performed By: #### L ITHIUM #### [facility] [address] [place] [address] Dr. Praneeth Diallo Chloride [Moles/Vol] 103 mmol/L Normal 98-107 [facility] Comment on above: Performed By: #### L ITHIUM #### [facility] [address] [place] [address] Dr. Praneeth Diallo CO2 [Moles/Vol] 31.3 mmol/L Normal 21.0-32.0 [facility] Comment on above: Performed By: #### L ITHIUM #### [facility] [address] [place] [address] Dr. Praneeth Diallo Creatinine [Mass/Vol] 0.72 mg/dL Normal 0.70-1.30 [facility] Comment on above: Performed By: #### L ITHIUM #### [facility] [address] [address] [address] Praneeth Diallo Glucose [Mass/Vol] 87 mg/dL Normal 74-106 [facility] Comment on above: Performed By: #### L ITHIUM #### [facility] [address] [address] [address] Praneeth Diallo Potassium [Moles/Vol] 4.0 mmol/L Normal 3.5-5.1 [facility] Comment on above: Performed By: #### L ITHIUM #### [facility] [address] [address] [address] Praneeth Diallo Sodium [Moles/Vol] 139 mmol/L Normal 136-145 [facility] Comment on above: Performed By: #### L ITHIUM #### [facility] [address] [address] [address] Praneeth Diallo Urea nitrogen [Mass/Vol] 15.0 mg/dL Normal 6.4-19.3 [facility] Comment on above: Performed By: #### L ITHIUM #### [facility] [address] [address] [address] Praneeth Diallo Urea nitrogen/Creatinine [Mass ratio] 20.8 mg/mg Normal [facility] Comment on above: Performed By: #### L ITHIUM #### [facility] [address] [address] [address] Praneeth Diallo TSHon 04-10-2022 TSH 3.778 uIU/mL Normal 0.516-4.130 [facility] Comment on above: Performed By: #### L ITHIUM #### [facility] [address] [address] [address] Praneeth Diallo XR CHEST 2 Von 04-09-2022 XR CHEST 2 V EXAMINATION: XR CHEST 2 V HISTORY: Fatigue COMPARISON: No relevant comparison available. TECHNIQUE: PA and lateral FINDINGS: LUNGS: No significant pulmonary parenchymal abnormalities. VASCULATURE: No increased pulmonary vasculature. PLEURA: No pneumothorax, effusion, or pleural thickening. CARDIAC: No cardiomegaly or cardiac silhouette abnormality. MEDIASTINUM: No visible mass or adenopathy. BONES: No fracture or visible bone lesion. OTHER: Negative. IMPRESSION: No acute disease. Electronically authenticated by: MALGORZATA SAGASTUME Date: 2022-04-09 19:20 Normal [facility] LITHIUMon 09-18-2021 [place] (Eskalith(R)), Serum 0.2 mmol/L Critically low 0.5-1.2 [facility] Comment on above: Result Comment: Plas ma concentration of 0.5 - 0.8 mmol/L are advised for long-term use; concentrations of up to 1.2 mmol/L may be necessary during acute treatment. Detection Limit = 0.1 <0.1 indicates None Detected Performed By: #### L ITHIUM #### [facility] [address] [place] [address] Dr. Praneeth Diallo LITHIUMon 08-05-2021 [place] (Eskalith(R)), Serum 0.2 mmol/L Critically low 0.5-1.2 [facility] Comment on above: Result Comment: Plas ma concentration of 0.5 - 0.8 mmol/L are advised for long-term use; concentrations of up to 1.2 mmol/L may be necessary during acute treatment. Detection Limit = 0.1 <0.1 indicates None Detected Performed By: #### L ITHIUM #### [facility] [address] [place] [address] Dr. Praneeth Diallo CBC AUTO DIFFon 08-04-2021 BASO # 0.1 103/ul Normal 0.0-0.1 [facility] Comment on above: Performed By: #### C BC #### [facility] [address] [place] [address] Dr. Praneeth Diallo Basophils/100 WBC (Bld) 1.4 % Normal 0.2-2.0 [facility] Comment on above: Performed By: #### C BC #### [facility] [address] [place] [address] Dr. Praneeth Diallo EO # 0.2 103/ul Normal 0.0-0.7 [facility] Comment on above: Performed By: #### C BC #### [facility] [address] [address] [address] Praneeth Diallo Eosinophils/100 WBC (Bld) 3.2 % Normal 0.9-7.0 [facility] Comment on above: Performed By: #### C BC #### [facility] [address] [place] [address] Dr. Praneeth Diallo Erythrocyte distribution width (RBC) [Ratio] 11.9 % Normal 11.0-15.0 [facility] Comment on above: Performed By: #### C BC #### [facility] [address] [place] [address] Dr. Praneeth Diallo Hematocrit (Bld) [Volume fraction] 50.0 % Normal 42.0-54.0 [facility] Comment on above: Performed By: #### C BC #### [facility] [address] [place] [address] Dr. Praneeth Diallo Hemoglobin (Bld) [Mass/Vol] 16.8 g/dL Normal 14.0-18.0 [facility] Comment on above: Performed By: #### C BC #### [facility] [address] [place] [address] Dr. Praneeth Diallo IG # 0.04 10e3/ul Critically high 0.00-0.03 [facility] Comment on above: Performed By: #### C BC #### [facility] [address] [place] [address] Dr. Praneeth Diallo IG % 0.6 % Critically high 0.0-0.5 [facility] Comment on above: Performed By: #### C BC #### [facility] [address] [place] [address] Dr. Praneeth Diallo LYMPH # 2.4 103/ul Normal 1.2-3.8 [facility] Comment on above: Performed By: #### C BC #### [facility] [address] [place] [address] Dr. Praneeth Diallo Lymphocytes/100 WBC (Bld) 36.1 % Normal 20.5-60.0 [facility] Comment on above: Performed By: #### C BC #### [facility] [address] [place] [address] Dr. Praneeth Diallo MANUAL DIFF REQ NO Normal [facility] Comment on above: Performed By: #### C BC #### [facility] [address] [place] [address] Dr. Praneeth Diallo MCH (RBC) [Entitic mass] 30.9 pg Normal 25.9-34.0 [facility] Comment on above: Performed By: #### C BC #### [facility] [address] [place] [address] Dr. Praneeth Diallo MCHC (RBC) [Mass/Vol] 33.6 g/dL Normal 29.9-35.2 [facility] Comment on above: Performed By: #### C BC #### [facility] [address] [place] [address] Dr. Praneeth Diallo MCV (RBC) [Entitic vol] 92.1 fL Critically high 76.3-90.1 [facility] Comment on above: Performed By: #### C BC #### [facility] [address] [place] [address] Dr. Praneeth Diallo MONO # 0.7 103/ul Normal 0.3-0.8 [facility] Comment on above: Performed By: #### C BC #### [facility] [address] [place] [address] Dr. Praneeth Diallo Monocytes/100 WBC (Bld) 10.3 % Normal 1.7-12.0 [facility] Comment on above: Performed By: #### C BC #### [facility] [address] [place] [address] Dr. Praneeth Diallo NEUT # 3.2 103/ul Normal 1.4-6.5 [facility] Comment on above: Performed By: #### C BC #### [facility] [address] [place] [address] Dr. Praneeth Diallo Neutrophils/100 WBC (Bld) 48.4 % Normal 43.0-75.0 [facility] Comment on above: Performed By: #### C BC #### [facility] [address] [place] [address] Dr. Praneeth Diallo Platelet mean volume (Bld) [Entitic vol] 9.6 fL Normal 9.5-13.5 [facility] Comment on above: Performed By: #### C BC #### [facility] [address] [place] [address] Dr. Praneeth Diallo PLT 243 103/ul Normal 150-450 [facility] Comment on above: Performed By: #### C BC #### [facility] [address] [place] [address] Dr. Praneeth Diallo RBC 5.43 106/ul Critically high 3.30-5.40 [facility] Comment on above: Performed By: #### C BC #### [facility] [address] [place] [address] Dr. Praneeth Diallo WBC 6.6 103/ul Normal 4.0-11.0 [facility] Comment on above: Performed By: #### C BC #### [facility] [address] [place] [address] Dr. Praneeth Diallo FREE T4on 08-04-2021 Free T4 [Mass/Vol] 0.68 ng/dL Critically low 0.78-2.19 [facility] Comment on above: Performed By: #### F T4, VITAD #### [facility] [address] [place] [address] Dr. Praneeth Diallo LIPID PROFILEon 08-04-2021 CHOL-HDL RATIO NORM SEE BELOW Normal [facility] Comment on above: Result Comment: 3.3 - 4.4 LOW RISK 4.4 - 7.1 AVERAGE RISK 7.1 - 11.0 MODERATE RISK >11.0 HIGH RISK Performed By: #### L ITHIUM #### [facility] [address] [place] [address] Dr. Praneeth Diallo Cholesterol [Mass/Vol] 193 mg/dL Critically high 109-189 [facility] Comment on above: Performed By: #### L ITHIUM #### [facility] [address] [place] [address] Dr. Praneeth Diallo Cholesterol in HDL [Mass/Vol] 51 mg/dL Normal 23-55 [facility] Comment on above: Performed By: #### L ITHIUM #### [facility] [address] [address] [address] Praneeth Diallo Cholesterol in LDL [Mass/Vol] 116.0 mg/dL Normal 48.0-117.0 [facility] Comment on above: Performed By: #### L ITHIUM #### [facility] [address] [address] [address] Praneeth Diallo Cholesterol.total/Chol esterol in HDL [Mass ratio] 3.8 {ratio} Normal [facility] Comment on above: Performed By: #### L ITHIUM #### [facility] [address] [place] [address] Dr. Praneeth Diallo HDL NORMAL > or = 60 mg/dl - LOW CARDIOVASCULAR RISK <40 mg/dl - HIGH CARDIOVASCULAR RISK Normal [facility] Comment on above: Performed By: #### L ITHIUM #### [facility] [address] [place] [address] Dr. Praneeth Diallo LDL CALC NORMAL SEE BELOW Normal [facility] Comment on above: Result Comment: <100 mg/dl OPTIMAL 100 - 129 mg/dl NEAR OR ABOVE OPTIMAL 130 - 159 mg/dl BORDERLINE HIGH 160 - 189 mg/dl HIGH >190 mg/dl VERY HIGH Performed By: #### L ITHIUM #### [facility] [address] [address] [address] Praneeth Diallo Triglyceride [Mass/Vol] 130 mg/dL Normal 50-183 [facility] Comment on above: Performed By: #### L ITHIUM #### [facility] [address] [address] [address] Praneeth Diallo VLDL CALC 26.0 mg/dL Normal [facility] Comment on above: Performed By: #### L ITHIUM #### [facility] [address] [place] [address] Dr. Praneeth Diallo PROF CHEM 8 (BAS METB)on Anion gap [Moles/Vol] 8.9 mmol/L Normal [facility] Comment on above: Performed By: #### L ITHIUM #### [facility] [address] [address] [address] Praneeth Diallo Calcium [Mass/Vol] 9.3 mg/dL Normal 8.4-10.2 [facility] Comment on above: Performed By: #### L ITHIUM #### [facility] [address] [address] [address] Praneeth Diallo Chloride [Moles/Vol] 105 mmol/L Normal 98-107 [facility] Comment on above: Performed By: #### L ITHIUM #### [facility] [address] [address] [address] Praneeth Diallo CO2 [Moles/Vol] 29.8 mmol/L Normal 22.0-30.0 [facility] Comment on above: Performed By: #### L ITHIUM #### [facility] [address] [address] [address] Praneeth Diallo Creatinine [Mass/Vol] 0.91 mg/dL Normal 0.66-1.25 [facility] Comment on above: Performed By: #### L ITHIUM #### [facility] [address] [address] [address] Praneeth Diallo Glucose [Mass/Vol] 88 mg/dL Normal 74-106 [facility] Comment on above: Performed By: #### L ITHIUM #### [facility] [address] [address] [address] Praneeth Diallo Potassium [Moles/Vol] 4.7 mmol/L Normal 3.4-5.0 [facility] Comment on above: Performed By: #### L ITHIUM #### [facility] [address] [address] [address] Praneeth Diallo Sodium [Moles/Vol] 139 mmol/L Normal 137-145 [facility] Comment on above: Performed By: #### L ITHIUM #### [facility] [address] [address] [address] Praneeth Diallo Urea nitrogen [Mass/Vol] 15.0 mg/dL Normal 6.4-19.3 [facility] Comment on above: Performed By: #### L ITHIUM #### [facility] [address] [address] [address] Praneeth Diallo Urea nitrogen/Creatinine [Mass ratio] 16.5 mg/mg Normal [facility] Comment on above: Performed By: #### L ITHIUM #### [facility] [address] [address] [address] Praneeth Diallo TSHon 08-04-2021 TSH 2.248 uIU/mL Normal 0.430-3.750 [facility] Comment on above: Performed By: #### L ITHIUM #### [facility] [address] [address] [address] Praneeth Diallo TSH RANGE SEE BELOW Normal [facility] Comment on above: Result Comment: <0.3 4 UIU/ml HYPERTHYROID 0.34-5.60 UIU/ml EUTHYROID >5.60 UIU/ml HYPOTHYROID Performed By: #### L ITHIUM #### [facility] [address] [place] [address] Dr. Praneeth Diallo VITAMIN D 25 OHon 08-04-2021 VIT D 25-OH 22.3 ng/mL Normal [facility] Comment on above: Performed By: #### F T4, VITAD #### [facility] [address] [place] [address] Dr. Praneeth Diallo VIT D RANGES SEE BELOW Normal [facility] Comment on above: Result Comment: <20 ng/mL Vit D deficient 20 - <30 ng/mL Vit D insufficient 30 - 100 ng/mL Vit D sufficient >100 ng/mL Potential Toxicity Performed By: #### F T4, VITAD #### [facility] [address] [place] [address] Dr. Praneeth Diallo [facility] SARS-CoV-2 (COVID-19) RNA NICHOLAS+probe Ql (Unsp spec) Not detected Normal NOT DETECTED [facility] Comment on above: Result Comment: This test is not yet approved or cleared by the [place] FDA. When there are no FDA-approved or cleared tests available, and other criteria are met, FDA can make tests available under an emergency access mechanism called an Emergency Use Authorization (EUA). The EUA for this test is supported by the [place] of Health and Human Service's (HHS's) declaration that circumstances exist to justify the emergency use of in vitro diagnostics for the detection and/or diagnosis of the virus that causes COVID-19. This EUA will remain in effect (meaning this test can be used) for the duration of the COVID-19 declaration justifying emergency of IVDs, unless it is terminated or revoked by FDA (after which the test may no longer be used). When diagnostic testing is negative, the possibility of a false negative should be considered in the context of a patient's recent exposures and the presence of clinical signs and symptoms consistent with SARS-CoV-2. Performed By: #### L ITHIUM #### [facility] [address] [place] [address] Dr. Praneeth Diallo Covid-19 PCR ([facility])on 06-14 SARS-CoV-2 (COVID-19) RNA NICHOLAS+probe Ql (Unsp spec) Not detected Normal NOT DETECTED [facility] Comment on above: Result Comment: This test is not yet approved or cleared by the [place] FDA. When there are no FDA-approved or cleared tests available, and other criteria are met, FDA can make tests available under an emergency access mechanism called an Emergency Use Authorization (EUA). The EUA for this test is supported by the [employer] of Health and Human Service's (HHS's) declaration that circumstances exist to justify the emergency use of in vitro diagnostics for the detection and/or diagnosis of the virus that causes COVID-19. This EUA will remain in effect (meaning this test can be used) for the duration of the COVID-19 declaration justifying emergency of IVDs, unless it is terminated or revoked by FDA (after which the test may no longer be used). When diagnostic testing is negative, the possibility of a false negative should be considered in the context of a patient's recent exposures and the presence of clinical signs and symptoms consistent with SARS-CoV-2. Performed By: #### C VDTBH #### [facility] [address] [place] [address] Dr. Praneeth Diallo Quick Strepon 04-27-2021 S. pyogenes Org specific cx Ql (Throat) Negative [facility] [place] Other Quick Strep [facility] [place] Other Quick Strepon 04-25-2021 S. pyogenes Org specific cx Ql (Throat) Negative [facility] [place] Other CBC W/DIFFon 02-13-2021 ABS IMM GRANS 0.0 10*3/uL Normal 0.0-0.2 [facility] Comment on above: Order Comment: No: D o not add to previous draw Performed By: #### 5 0103 #### [facility] [address] [place] [address], [facility] ABS NEUTROPHILS 2.3 10*3/uL Normal 1.8-10.1 The [facility] Comment on above: Order Comment: No: D o not add to previous draw Performed By: #### 5 0103 #### [facility] [address] [place] [address], [facility] Basophils (Bld) [#/Vol] 0.1 10*3/uL Normal 0.0-0.3 [facility] Comment on above: Order Comment: No: D o not add to previous draw Performed By: #### 5 0103 #### [facility] [address] [place] [address], [facility] Basophils/100 WBC (Bld) 1.7 % Normal 0.0-2.0 [facility] Comment on above: Order Comment: No: D o not add to previous draw Performed By: #### 5 0103 #### [facility] [address] [place] [address], [facility] Eosinophils (Bld) [#/Vol] 0.1 10*3/uL Normal 0.0-0.5 [facility] Comment on above: Order Comment: No: D o not add to previous draw Performed By: #### 5 0103 #### [facility] [address] [place] [address], [facility] Eosinophils/100 WBC (Bld) 1.7 % Normal 0.0-4.0 [facility] Comment on above: Order Comment: No: D o not add to previous draw Performed By: #### 5 0103 #### [facility] [address] [place] [address], [facility] Erythrocyte distribution width (RBC) [Ratio] 11.7 % Normal 11.5-15.5 [facility] Comment on above: Order Comment: No: D o not add to previous draw Performed By: #### 5 3 #### [facility] [address] [place] [address], [facility] Hematocrit (Bld) [Volume fraction] 48.8 % Normal 36.0-49.0 [facility] Comment on above: Order Comment: No: D o not add to previous draw Performed By: #### 5 3 #### [facility] [address] [place] [id number], [facility] Hemoglobin (Bld) [Mass/Vol] 16.9 g/dL High 12.5-16.0 [facility] Comment on above: Order Comment: No: D o not add to previous draw Performed By: #### 5 3 #### [facility] [address] [place] [address], [facility] IMMATURE GRANS 0.2 % Normal 0.0-1.0 [facility] Comment on above: Order Comment: No: D o not add to previous draw Performed By: #### 5 0103 #### [facility] [address] [place] [id number], [facility] Lymphocytes (Bld) [#/Vol] 1.7 10*3/uL Normal 1.1-6.1 [facility] Comment on above: Order Comment: No: D o not add to previous draw Performed By: #### 5 3 #### [facility] [address] Lymphocytes/100 WBC (Bld) 36.5 % Normal 25.0-45.0 [facility] Comment on above: Order Comment: No: D o not add to previous draw Performed By: #### 5 0103 #### [facility] [address] [facility] [place] [address], [facility] MCH (RBC) [Entitic mass] 30.4 pg Normal 24.0-35.0 [facility] Comment on above: Order Comment: No: D o not add to previous draw Performed By: #### 5 0103 #### [facility] [address] [place] [address], [facility] MCHC (RBC) [Mass/Vol] 34.6 g/dL Normal 30.0-37.0 [facility] Comment on above: Order Comment: No: D o not add to previous draw Performed By: #### 5 0103 #### [facility] [address] [facility] [place] [address], [facility] MCV (RBC) [Entitic vol] 87.8 fL Normal 75.0-95.0 [facility] Comment on above: Order Comment: No: D o not add to previous draw Performed By: #### 5 0103 #### [facility] [address] [place] [address], [facility] Monocytes (Bld) [#/Vol] 0.5 10*3/uL Normal 0.1-1.1 [facility] Comment on above: Order Comment: No: D o not add to previous draw Performed By: #### 5 0103 #### [facility] [address] [place] [address], [facility] MONOS 10.8 % High 3.0-8.0 [facility] Comment on above: Order Comment: No: D o not add to previous draw Performed By: #### 5 0103 #### [facility] [address] [place] [address], [facility] Neutrophils/100 WBC (Bld) 49.1 % Normal 39.0-75.0 [facility] Comment on above: Order Comment: No: D o not add to previous draw Performed By: #### 5 0103 #### [facility] [address] [place] [address], [place] Nucleated RBC/100 WBC (Bld) [Ratio] 0 % Normal 0-0 [facility] Comment on above: Order Comment: No: D o not add to previous draw Performed By: #### 5 0103 #### [facility] [address] [place] [address], [place] PLAT CNT 251 10*3/uL Normal 150-[address] [facility] Comment on above: Order Comment: No: D o not add to previous draw Performed By: #### 5 0103 #### [facility] [address] [place] [address], [facility] RBC (Bld) [#/Vol] 5.56 10*6/uL High 4.50-5.50 The [facility] Comment on above: Order Comment: No: D o not add to previous draw Performed By: #### 5 0103 #### [facility] [address] [place] [address], [place] WBC (Bld) [#/Vol] 4.63 10*3/uL Normal 4.50-13.50 The [facility] Comment on above: Order Comment: No: D o not add to previous draw Performed By: #### 5 0103 #### [facility] [address] [place] [address], [place] COMP METABOLIC PANELon 02-13 Albumin [Mass/Vol] 4.9 g/dL Normal 3.5-5.[address] [facility] Comment on above: Order Comment: No: D o not add to previous draw Performed By: #### 3 1522, 28422, 24098, 44382, 00848 #### [facility] [address] [place] [address], [place] ALKALINE PHOSPH 84 IU/L Normal 40-460 The [facility] Comment on above: Order Comment: No: D o not add to previous draw Performed By: #### 3 1522, 18255, 36192, 39845, 69261 #### [facility] [address] [place] [address], [place] ALT [Catalytic activity/Vol] 8 U/L Normal 7-52 [facility] Comment on above: Order Comment: No: D o not add to previous draw Performed By: #### 3 1522, 16181, 23604, 42588, 45868 #### [facility] [address] [place] [address], [place] AST [Catalytic activity/Vol] 14 U/L Normal 13-39 [facility] Comment on above: Order Comment: No: D o not add to previous draw Performed By: #### 3 1522, 43150, 95832, 99754, 31594 #### [facility] [address] [place] [address], [place] Bilirubin [Mass/Vol] 1.1 mg/dL High 0.3-1.0 [facility] Comment on above: Order Comment: No: D o not add to previous draw Performed By: #### 3 1522, 86987, 71793, 01055, 49282 #### [facility] [address] [place] [address], [place] Calcium [Mass/Vol] 10.0 mg/dL Normal 8.6-10.3 [facility] Comment on above: Order Comment: No: D o not add to previous draw Performed By: #### 3 1522, 30177, 45357, 22039, 09171 #### [facility] [address] [place] [address], [place] Chloride [Moles/Vol] 104 mmol/L Normal 98-107 [facility] Comment on above: Order Comment: No: D o not add to previous draw Performed By: #### 3 1522, 35308, 35822, 99400, 18070 #### [facility] [address] [place] [address], [place] CO2 [Moles/Vol] 28 mmol/L Normal 21-31 The [facility] Comment on above: Order Comment: No: D o not add to previous draw Performed By: #### 3 1522, 54372, 06065, 33468, 07914 #### [facility] [address] [place] [address], [place] Creatinine [Mass/Vol] 1.04 mg/dL Normal 0.70-1.30 [facility] Comment on above: Order Comment: No: D o not add to previous draw Performed By: #### 3 1522, 34897, 46183, 94671, 94583 #### [facility] [address] [place] [address], [place] eGFR- Calculation not validated for patients under 18 years Abnormal >60 [facility] Comment on above: Order Comment: No: D o not add to previous draw Performed By: #### 3 1522, 62623, 29025, 75093, 98906 #### [facility] [address] [place] [address], [place] eGFR- non- Calculation not validated for patients under 18 years Abnormal >60 [facility] Comment on above: Order Comment: No: D o not add to previous draw Performed By: #### 3 1522, 70147, 25771, 79354, 20568 #### [facility] [address] [place] [address], [place] Glucose [Mass/Vol] 84 mg/dL Normal 70-100 [facility] Comment on above: Order Comment: No: D o not add to previous draw Performed By: #### 3 1522, 19671, 91362, 61015, 04006 #### [facility] [address] [place] [address], [place] Potassium [Moles/Vol] 4.0 mmol/L Normal 3.5-5.1 [facility] Comment on above: Order Comment: No: D o not add to previous draw Performed By: #### 3 1522, 65205, 83016, 83517, 69744 #### [facility] [address] [place] [address], [place] Protein [Mass/Vol] 7.2 g/dL Normal 6.0-8.3 [facility] Comment on above: Order Comment: No: D o not add to previous draw Performed By: #### 3 1522, 17585, 86258, 62120, 17341 #### [facility] [address] [place] [address], [place] Sodium [Moles/Vol] 139 mmol/L Normal 136-145 [facility] Comment on above: Order Comment: No: D o not add to previous draw Performed By: #### 3 1522, 16386, 79242, 95639, 20924 #### [facility] [address] [place] [address], [place] Urea nitrogen [Mass/Vol] 15 mg/dL Normal 7-25 [facility] Comment on above: Order Comment: No: D o not add to previous draw Performed By: #### 3 1522, 20334, 06575, 03870, 72056 #### [facility] [address] [place] [address], [place] FREE T3on 02-13-2021 Free T3 [Mass/Vol] 4.6 pg/mL High 2.5-3.[address] [facility] Comment on above: Order Comment: No: D o not add to previous draw Performed By: #### 3 1522, 40207, 21151, 39716, 14306 #### [facility] [address] [place] [address], [facility] FREE T4on 02-13-2021 Free T4 [Mass/Vol] 0.98 ng/dL Normal 0.71-1.[address] [facility] Comment on above: Order Comment: No: D o not add to previous draw Performed By: #### 3 1522, 46775, 57036, 29726, 37372 #### [facility] [address] [place] [address], [facility] LIPID PROFILEon 02-13-2021 Cholesterol [Mass/Vol] 176 mg/dL High 120-170 Th e [facility] Comment on above: Order Comment: No: D o not add to previous draw Result Comment: CHOL ESTEROL REFERENCE RANGE: 20 YEARS AND OLDER CARDIOVASCULAR RISK Less than 200 mg/dl Low Risk 200 to 239 mg/dl Borderline Risk 240 mg/dl and greater High Risk Performed By: #### 3 1522, 87715, 04436, 14162, 82490 #### [facility] [address] [facility] [place] [address], [facility] Cholesterol in HDL [Mass/Vol] 41 mg/dL Normal 23-92 The [facility] Comment on above: Order Comment: No: D o not add to previous draw Result Comment: Slig ht variation in normal range could be due to gender and/or age. HDL CHOLESTEROL REFERENCE RANGE: 20 years and older Cardiovascular Risk > or =60 mg/dL Desirable 40 TO 59 mg/dL Low Risk <40 mg/dL High Risk Performed By: #### 3 1522, 28354, 30005, 05028, 16570 #### [facility] [address] [place] [address], [facility] Cholesterol in LDL [Mass/Vol] 117 mg/dL Normal 0-130 The [facility] Comment on above: Order Comment: No: D o not add to previous draw Result Comment: LDL IS A CALCULATION LDL IS ONLY VALID IF THE TRIG IS LESS THAN 400. Performed By: #### 3 1522, 14932, 15192, 57148, 31254 #### [facility] [address] [place] [address], [facility] Cholesterol.total/Chol esterol in HDL [Mass ratio] 4.3 {ratio} Normal .0-4.5 [facility] Comment on above: Order Comment: No: D o not add to previous draw Performed By: #### 3 1522, 26734, 33539, 03604, 23595 #### [facility] [address] [place] [address], [facility] NON-HDL CHOLESTEROL 135 mg/dL Normal The [facility] Comment on above: Order Comment: No: D o not add to previous draw Performed By: #### 3 1522, 79300, 21219, 14447, 00726 #### [facility] [address] [place] [address], [facility] Triglyceride [Mass/Vol] 92 mg/dL Normal 37-148 The [facility] Comment on above: Order Comment: No: D o not add to previous draw Result Comment: TRIG LYCERIDE REFERENCE RANGE: 20 YEARS AND OLDER CARDIOVASCULAR RISK LESS THAN 150 mg/dl LOW RISK 150 TO 199 mg/dl BORDERLINE RISK 200 mg/dl AND GREATER HIGH RISK Performed By: #### 3 1522, 67190, 93589, 35051, 03049 #### [facility] [address] [place] [address], [facility] VLDL CHOL 18 mg/dL Normal 0-40 [facility] Comment on above: Order Comment: No: D o not add to previous draw Performed By: #### 3 1522, 33067, 98259, 23321, 61972 #### [facility] [address] [place] [id number], [facility] TSH3on 02-13-2021 TSH 3RD GENERATION 1.64 uIU/mL Normal 0.34-5.60 The [facility] Comment on above: Order Comment: No: D o not add to previous draw Performed By: #### 3 1522, 06859, 50750, 04382, 36305 #### [facility] [address] [facility] [place] [address], [facility] POC SARS COV2 ANTIGEN NEGATI VEon 02-12-2021 POC SARS COV2 ANTIGEN NEG Negative Normal NEGATIVE The [facility] Comment on above: Result Comment: Nega tive results from patients with symptom onset beyond seven days, should be treated presumptive and confirmation with a molecular assay, if necessary, for patient management, may be performed. Negative results do not rule out SARS-CoV-2 infection and should not be used as the sole basis for treatment or patient management decisions, including infection control decisions. Negative results should be considered in the context of a patient?s recent exposures, history and the presence of clinical signs and symptoms consistent with COVID-19. The [employer] COVID-19 Ag Card is a lateral flow immunoassay intended for the qualitative detection of nucleocapsid protein antigen from SARS-CoV-2 in direct nasal swabs from individuals within the first seven days of symptom onset. Testing is limited to laboratories certified under the Clinical Laboratory Improvement Amendments of 1988 (CLIA), 42 U.S.C. ???263a, that meet the requirements to perform moderate, high or waived complexity tests. This test is authorized for use at the Point of Care (POC), i.e., in patient care settings operating under a CLIA Certificate of Waiver, Certificate of Compliance, or Certificate of Accreditation. Performed By: #### 3 1977 #### [facility] [address] [facility] [place] [address], [facility] LIPID PROFILEon 07-24-2020 Cholesterol [Mass/Vol] 154 mg/dL Normal 120-170 Th e [facility] Comment on above: Order Comment: Unkno wn Result Comment: CHOL ESTEROL REFERENCE RANGE: 20 YEARS AND OLDER CARDIOVASCULAR RISK Less than 200 mg/dl Low Risk 200 to 239 mg/dl Borderline Risk 240 mg/dl and greater High Risk Performed By: #### 4 6413 #### [facility] [address] [facility] [place] [address], [facility] Cholesterol in HDL [Mass/Vol] 42 mg/dL Normal 23-92 The [facility] Comment on above: Order Comment: Unkno wn Result Comment: Slig ht variation in normal range could be due to gender and/or age. HDL CHOLESTEROL REFERENCE RANGE: 20 years and older Cardiovascular Risk > or =60 mg/dL Desirable 40 TO 59 mg/dL Low Risk <40 mg/dL High Risk Performed By: #### 4 6413 #### [facility] [address] [place] [address], [place] Cholesterol in LDL [Mass/Vol] 99 mg/dL Normal 0-130 [facility] Comment on above: Order Comment: Unkno wn Result Comment: LDL IS A CALCULATION LDL IS ONLY VALID IF THE TRIG IS LESS THAN 400. Performed By: #### 4 6413 #### [facility] [address] [place] [address], [facility] Cholesterol.total/Chol esterol in HDL [Mass ratio] 3.7 {ratio} Normal 0.0-4.5 [facility] Comment on above: Order Comment: Unkno wn Performed By: #### 4 6413 #### [facility] [address] [place] [address], [place] NON-HDL CHOLESTEROL 112 mg/dL Normal The [facility] Comment on above: Order Comment: Unkno wn Performed By: #### 4 6413 #### [facility] [address] [place] [address], [place] Triglyceride [Mass/Vol] 64 mg/dL Normal 37-148 [facility] Comment on above: Order Comment: Unkno wn Result Comment: TRIG LYCERIDE REFERENCE RANGE: 20 YEARS AND OLDER CARDIOVASCULAR RISK LESS THAN 150 mg/dl LOW RISK 150 TO 199 mg/dl BORDERLINE RISK 200 mg/dl AND GREATER HIGH RISK Performed By: #### 4 6413 #### [facility] [address] [place] [address], [place] VLDL CHOL 13 mg/dL Normal 0-40 [facility] Comment on above: Order Comment: Unkno wn Performed By: #### 4 6413 #### [facility] [address] [place] [address], [place] Vital Signs Date Time Vital Sign Value Performing Clinician Facility 01-10-2025 13:02-0400 Body height 172.72 cm Erika Chaidez MD Work Phone: [facility] 01-10-2025 13:02-0400 Body mass index (BMI) [Ratio] 22.5 kg/m2 Erika Chaidez MD Work Phone: [facility] 01-10-2025 13:02-0400 Body temperature 98.7 [degF] Erika Chaidez MD Work Phone: [facility] 01-10-2025 13:020400 Body weight 67.13 kg Erika Chaidez MD Work Phone: [facility] 01-10-2025 13:02-0400 Diastolic blood pressure 78 mm[Hg] Erika Chaidez MD Work Phone: [facility] 01-10-2025 13:02-0400 Heart rate 91 /min Erika Chaidez MD Work Phone: [facility] 01-10-2025 13:02-0400 Systolic blood pressure 113 mm[Hg] Erika Chaidez MD Work Phone: [facility] 01-08-2025 09:12-0400 Body height 172.72 cm Erika Chaidez MD Work Phone: [facility] 01-08-2025 09:12-0400 Body mass index (BMI) [Ratio] 22.5 kg/m2 Erika Chaidez MD Work Phone: [facility] 01-08-2025 09:12-0400 Body temperature 98.2 [degF] Erika Chaidez MD Work Phone: [facility] 01-08-2025 09:12-0400 Body weight 67.13 kg Erika Chaidez MD Work Phone: [facility] 01-08-2025 09:12-0400 Diastolic blood pressure 82 mm[Hg] Erika Chaidez MD Work Phone: [facility] 01-08-2025 09:12-0400 Heart rate 94 /min Erika Chaidez MD Work Phone: [facility] 01-08-2025 09:12-0400 SaO2% (BldA) [Mass fraction] 97 % Erika Chaidez MD Work Phone: [facility] 01-08-2025 09:12-0400 Systolic blood pressure 130 mm[Hg] Erika Chaidez MD Work Phone: [facility] 11-07-2024 10:39-0400 Body height 172.72 cm [facility] 11-07-2024 10:39-0400 Body mass index (BMI) [Ratio] 22.9 kg/m2 [facility] 11-07-2024 10:39-0400 Body temperature 96.4 [degF] [facility] 11-07-2024 10:39-0400 Body weight 68.49 kg [facility] 11-07-2024 10:39-0400 Diastolic blood pressure 68 mm[Hg] [facility] 11-07-2024 10:39-0400 Heart rate 72 /min [facility] 11-07-2024 10:39-0400 SaO2% (BldA) [Mass fraction] 98 % [facility] 11-07-2024 10:39-0400 Systolic blood pressure 112 mm[Hg] [facility] 09-22-2024 11:44-0400 Body height 172.72 cm [facility] 09-22-2024 11:44-0400 Body mass index (BMI) [Percentile] Per age and sex 54.3 % [facility] 09-22-2024 11:44-0400 Body mass index (BMI) [Ratio] 23.3 kg/m2 [facility] 09-22-2024 11:44-0400 Body temperature 98.4 [degF] [facility] 09-22-2024 11:44-0400 Body weight 69.51 kg [facility] 09-22-2024 11:44-0400 Diastolic blood pressure 90 mm[Hg] [facility] 09-22-2024 11:44-0400 Heart rate 85 /min [facility] 09-22-2024 11:44-0400 Respiratory rate 12 /min [facility] 09-22-2024 11:44-0400 SaO2% (BldA) [Mass fraction] 97 % [facility] 09-22-2024 11:44-0400 Systolic blood pressure 146 mm[Hg] [facility] 04-12-2024 10:41-0400 Body height 172.72 cm MD Erika Chaidez Work Phone: [facility] 04-12-2024 10:41-0400 Body mass index (BMI) [Percentile] Per age and sex 41.6 % MD Erika Chaidez Work Phone: [facility] 04-12-2024 10:41-0400 Body mass index (BMI) [Ratio] 22.1 kg/m2 MD Erika Chaidez Work Phone: [facility] 04-12-2024 10:41-0400 Body temperature 99.4 [degF] MD Erika Chaidez Work Phone: [facility] 04-12-2024 10:41-0400 Body weight 66.22 kg MD Erika Chaidez Work Phone: [facility] 04-12-2024 10:41-0400 Diastolic blood pressure 73 mm[Hg] MD Erika Chaidez Work Phone: [facility] 04-12-2024 10:41-0400 Heart rate 93 /min MD Erika Chaidez Work Phone: [facility] 04-12-2024 10:41-0400 Respiratory rate 18 /min MD Erika Chaidez Work Phone: [facility] 04-12-2024 10:41-0400 SaO2% (BldA) [Mass fraction] 98 % MD Erika Chaidez Work Phone: [facility] 04-12-2024 10:41-0400 Systolic blood pressure 130 mm[Hg] MD Erika Chaidez Work Phone: [facility] 03-20-2024 10:39-0400 Body height 172.72 cm [facility] 03-20-2024 10:39-0400 Body mass index (BMI) [Percentile] Per age and sex 48.9 % [facility] 03-20-2024 10:39-0400 Body mass index (BMI) [Ratio] 22.6 kg/m2 [facility] 03-20-2024 10:39-0400 Body temperature 97.6 [degF] [facility] 03-20-2024 10:39-0400 Body weight 67.35 kg [facility] 03-20-2024 10:39-0400 Diastolic blood pressure 70 mm[Hg] [facility] 03-20-2024 10:39-0400 Heart rate 79 /min [facility] 03-20-2024 10:39-0400 Respiratory rate 16 /min [facility] 03-20-2024 10:39-0400 SaO2% (BldA) [Mass fraction] 97 % [facility] 03-20-2024 10:39-0400 Systolic blood pressure 110 mm[Hg] [facility] 03-08-2024 12:59-0400 Body height 172.72 cm [facility] 03-08-2024 12:59-0400 Body mass index (BMI) [Percentile] Per age and sex 51.8 % [facility] 03-08-2024 12:59-0400 Body mass index (BMI) [Ratio] 22.8 kg/m2 [facility] 03-08-2024 12:59-0400 Body temperature 99.9 [degF] [facility] 03-08-2024 12:59-0400 Body weight 68.03 kg [facility] 03-08-2024 12:59-0400 Diastolic blood pressure 68 mm[Hg] [facility] 03-08-2024 12:59-0400 Heart rate 81 /min [facility] 03-08-2024 12:59-0400 Respiratory rate 18 /min [facility] 03-08-2024 12:59-0400 SaO2% (BldA) [Mass fraction] 96 % [facility] 03-08-2024 12:59-0400 Systolic blood pressure 121 mm[Hg] [facility] 11-29-2023 14:02-0400 Body height 172.72 cm MD Erika Chaidez Work Phone: [facility] 11-29-2023 14:02-0400 Body mass index (BMI) [Percentile] Per age and sex 41.6 % MD Erika Chaidez Work Phone: [facility] 11-29-2023 14:02-0400 Body mass index (BMI) [Ratio] 21.9 kg/m2 MD Erika Chaidez Work Phone: [facility] 11-29-2023 14:02-0400 Body weight 65.31 kg MD Erika Chaidez Work Phone: [facility] 11-29-2023 14:02-0400 Diastolic blood pressure 82 mm[Hg] MD Erika Chaidez Work Phone: [facility] 11-29-2023 14:02-0400 Heart rate 85 /min MD Erika Chaidez Work Phone: [facility] 11-29-2023 14:02-0400 SaO2% (BldA) [Mass fraction] 98 % MD Erika Chaidez Work Phone: [facility] 11-29-2023 14:02-0400 Systolic blood pressure 124 mm[Hg] MD Erika Chaidez Work Phone: [facility] 11-09-2023 10:53-0400 Body height 172.72 cm [facility] 11-09-2023 10:53-0400 Body mass index (BMI) [Percentile] Per age and sex 44.8 % [facility] 11-09-2023 10:53-0400 Body mass index (BMI) [Ratio] 22.1 kg/m2 [facility] 11-09-2023 10:53-0400 Body weight 66.22 kg [facility] 11-09-2023 10:53-0400 Diastolic blood pressure 79 mm[Hg] [facility] 11-09-2023 10:53-0400 Heart rate 76 /min [facility] 11-09-2023 10:53-0400 Systolic blood pressure 127 mm[Hg] [facility] 05-20-2023 08:30-0500 Body height 172.72 cm Leatha Elena Other [facility] Other 05-20-2023 08:30-0500 Body mass index (BMI) [Ratio] 21.13 kg/m2 Leatha Elena Other [facility] Other 05-20-2023 08:30-0500 Body weight 63.05 kg Leatha Elena Other [facility] Other 05-20-2023 08:30-0500 Diastolic blood pressure 78 mm[Hg] Leatha Elena Other [facility] Other 05-20-2023 08:30-0500 SaO2% (BldA) [Mass fraction] 99 % Leatha Elena Other [facility] Other 05-20-2023 08:30-0500 Systolic blood pressure 120 mm[Hg] Leatha Elena Other [facility] Other 08-10-2022 14:15-0500 Body height 172.72 cm Erika Chaidez Other [facility] Other 08-10-2022 14:15-0500 Body mass index (BMI) [Ratio] 20.95 kg/m2 Erika Chaidze Other [facility] Other 08-10-2022 14:15-0500 Body temperature 98.4 [degF] Erika Chaidez Other [facility] Other 08-10-2022 14:15-0500 Body weight 62.51 kg Erika Kaylynn Other [facility] Other 08-10-2022 14:15-0500 Diastolic blood pressure 70 mm[Hg] Erika Chaidez Other [facility] Other 08-10-2022 14:15-0500 SaO2% (BldA) [Mass fraction] 97 % Erikasobeida Chaidez Other [facility] Other 08-10-2022 14:15-0500 Systolic blood pressure 108 mm[Hg] Erikasobeida Chaidez Other [facility] Other 04-27-2021 14:45-0500 Body height 172.72 cm Nabila Cheema Other [facility] Other 04-27-2021 14:45-0500 Body mass index (BMI) [Ratio] 18.24 kg/m2 Nabila Mcarthurmond Other [facility] Other 04-27-2021 14:45-0500 Body temperature 98.4 [degF] Nabila Mcarthurmond Other [facility] Other 04-27-2021 14:45-0500 Body weight 54.43 kg Nabila Mcarthurmond Other [facility] Other 04-27-2021 14:45-0500 Respiratory rate 18 /min Nabila Mcarthurmond Other [facility] Other 04-27-2021 14:45-0500 SaO2% (BldA) [Mass fraction] 98 % Nabila Cheema Other [facility] Other 04-25-2021 17:15-0500 Body height 172.72 cm Nabila Cheema Other [facility] Other 04-25-2021 17:15-0500 Body mass index (BMI) [Ratio] 18.24 kg/m2 Nabila Cheema Other [facility] Other 04-25-2021 17:15-0500 Body temperature 98.4 [degF] Nabila Cheema Other [facility] Other 04-25-2021 17:15-0500 Body weight 54.43 kg Nabila Cheema Other [facility] Other 04-25-2021 17:15-0500 SaO2% (BldA) [Mass fraction] 95 % Nabila Cheema Other [facility] Other Encounters Encounter Date Encounter Type Care Provider Facility Start: 01-10-2025 End: 01-10-2025 ambulatory Erika Chaidez MD Work Phone: [facility] Work Phone: Start: 01-10-2025 End: 01-10-2025 Patient encounter procedure Erika Chaidez MD -[facility] Work Phone: Start: 01-08-2025 End: 01-08-2025 ambulatory Erika Chaidez MD Work Phone: [facility] Work Phone: Start: 01-08-2025 End: 01-08-2025 Patient encounter procedure Eriak Chaidez MD -[facility] Work Phone: Start: 11-07-2024 End: 11-07-2024 ambulatory [facility] Work Phone: Start: 11-07-2024 End: 11-07-2024 Patient encounter procedure [facility] Work Phone: Start: 10-02-2024 End: 10-02-2024 ambulatory [facility] Start: 09-22-2024 End: 09-22-2024 ambulatory [facility] Work Phone: Start: 09-22-2024 End: 09-22-2024 Patient encounter procedure [facility] Work Phone: Start: 08-14-2024 End: 08-14-2024 ambulatory [facility] Start: 04-12-2024 End: 04-12-2024 Patient encounter procedure MD Erika Chaidez Work Phone: [facility] Work Phone: Start: 04-12-2024 End: 04-12-2024 ambulatory MD Erika Chaidez Work Phone: [facility] Work Phone: Start: 04-12-2024 End: 04-12-2024 ambulatory MD Erika Chaidez Work Phone: [facility] Work Phone: Start: 04-12-2024 End: 04-12-2024 Patient encounter procedure MD Erika Chaidez Work Phone: [facility] Work Phone: Start: 03-20-2024 End: 03-20-2024 ambulatory [facility] Work Phone: Start: 03-20-2024 End: 03-20-2024 Patient encounter procedure [facility] Work Phone: Start: 03-08-2024 End: 03-08-2024 ambulatory [facility] Work Phone: Start: 03-08-2024 End: 03-08-2024 Patient encounter procedure [facility] Work Phone: Start: 01-17-2024 End: 01-17-2024 ambulatory [facility] Start: 11-29-2023 End: 11-29-2023 ambulatory MD Erika Chaidez Work Phone: [facility] Work Phone: Start: 11-29-2023 End: 11-29-2023 Patient encounter procedure MD Erika Chaidez Work Phone: [facility] Work Phone: Start: 11-26-2023 End: 11-26-2023 Patient encounter procedure MD Erika Chaidez Work Phone: [facility] Work Phone: Start: 11-26-2023 End: 11-26-2023 ambulatory MD Erika Chaidez Work Phone: [facility] Work Phone: Start: 11-09-2023 End: 11-09-2023 ambulatory [facility] Work Phone: Start: 11-09-2023 End: 11-09-2023 Patient encounter procedure [facility] Work Phone: Start: 11-03-2023 Non-patient / Non-visit [facility] Work Phone: Start: 05-20-2023 End: 05-20-2023 ambulatory Leatha Elena Other [facility] [place] Other Start: 05-20-2023 Office outpatient vi sit 15 minutes Leatha Elena [facility] Start: 08-17-2022 End: 08-17-2022 ambulatory Erika Chaidez Other [facility] Other Start: 08-17-2022 Telephone encounter Erika Chaidez [facility] Start: 08-10-2022 End: 08-10-2022 ambulatory Erika Chaidez Other [facility] Other Start: 08-10-2022 Patient encounter procedure Erika Chaidez [facility] Start: 06-22-2022 End: 06-22-2022 ambulatory Erika Chaidez Other [facility] Other Start: 06-22-2022 Telephone encounter Erika Chaidez [facility] Start: 06-19-2022 End: 06-19-2022 ambulatory Erika Chaidez Other [facility] Other Start: 06-19-2022 Office outpatient vi sit 15 minutes Erika Chaidez [facility] Start: 06-18-2022 End: 06-18-2022 ambulatory Erika Chaidez Other [facility] Other Start: 06-18-2022 Telephone encounter Erika Chaidez [facility] Start: 06-04-2022 End: 06-04-2022 ambulatory ERIKA Nevarez KAYLYNN [facility] Start: 06-04-2022 End: 06-05-2022 ambulatory ERIKA CHAIDEZ PROVIDER Facility:[facility] Start: 06-04-2022 End: 06-04-2022 Patient encounter procedure ERIKA CHAIDEZ [facility] Start: 05-25-2022 End: 05-25-2022 ambulatory MENA SEQUEIRA Facility: Start: 04-21-2022 Well child visit Leatha chanel Other [facility] Other Start: 04-15-2022 Child health medical examination Leatha Elena Other [facility] Other Start: 04-10-2022 End: 04-11-[address] ERIKA CHAIDEZ Facility:[facility] Start: 04-09-2022 End: 04-10-[address] ERIKA CHAIDEZ Facility:[facility] Start: 09-16-2021 End: 09-17-[address] DOCTOR GUERIN Facility:[facility] Start: 08-04-2021 End: 08-05-[address] DOCTOR GUERIN Facility:[facility] Start: 07-01-2021 End: 07-01-[address] ERIKA CHAIDEZ Facility:[facility] Start: 06-26-2021 End: 06-26-[address] ERIKA CHAIDEZ Facility:[facility] Start: 04-27-2021 End: 04-27-2021 ambulatory Nabila Anette Other [facility] Other Start: 04-27-2021 Office outpatient vi sit 15 minutes Nabila Anette [facility] Start: 04-25-2021 End: 04-25-2021 ambulatory Nabila Anette Other [facility] Other Start: 04-25-2021 Office outpatient vi sit 15 minutes Nabila Anette [facility] Procedures Date Procedure Procedure Detail Performing Clinician Start: 04-12-2024 Quick Strep (POC) MD Erika Chaidez Work Phone: Start: 04-12-2024 Plain chest X-ray MD Erika Chaidez Work Phone: Start: 03-08-2024 Quick Strep (POC) Start: 11-26-2023 MRI of abdomen with contrast MD Erika Chaidez Work Phone: History of tonsillectomy History of tonsi llectomy MD Erika Chaidez Work Phone: Plan of Treatment Date Care Activity Detail Author Start: 11-29-2023 Patient referral [facility] Work Phone: Patient referral [facility] Work Phone: [facility] Immunizations Immunization Date Immunization Notes Care Provider Robert trevizo 02-01-2018 diphtheria, tetanus toxoids and acellular pertussis vaccine, unspecified formulation Leatha Kassy Other [facility] 02-01-2018 meningococcal oligosaccharide (groups A, C, Y and W-135) diphtheria toxoid conjugate vaccine (MCV4O) Leatha Kassy Other [facility] Payers Date Payer Category Payer Self-pay 2022 Unknown 1978 Unknown [id number] 2.16.84 [id number] 1977 Unknown [id number] 2.16.84 [id number] 1977 Unknown [id number] 2.16.84 [id number] 1977 Unknown [id number] 2.16.84 [id number] 1977 Unknown [id number] 2.16.84 [id number] 1977 Unknown [id number] 2.16.84 [id number] 1977 Unknown [id number] 2.16.84 [id number] 1977 Unknown [id number] 2.16. [id number] 1977 Unknown [id number] 2.16.8 [id number] 1959 Unknown [id number] Unknown [id number] 2.16.8 [id number] Unknown [id number] 2.16.8 [id number] Social History Date Type Detail Facility Sex Assigned At [facility] Other Sex Assigned At [facility] Tobacco smoking status No Smokin g Status Entered [facility] Start: 11-09-2023 End: 04-12-2024 Tobacco smoking status NHIS Never smoked tobacco (finding) [facility] Start: 2004 Sex Assigned At Male [facility] Start: 09-22-2024 End: 11-07-2024 Sex Male (finding) [facility] Clinical Notes 08-12-2020 to 11-29-2024 Note Date & Type Note Facility 11-29-2024 Note ------ Attestation signed by Evelyn Cook MD at 11/29/2024 3:41 PM noted ------ Professional Nurse to Resident Transfer Summary Date of admission/DA: 2020 Date of transfer: 10/02/2024 Date of last service/visit: 10/02/2024 Results of service/current symptom control: moderate Reason for transfer/discharge: 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 Resident the patient is being transferred to: Dr. Wilkins Summary of relevant biopsychosocial status at transfer or discharge: Patient currently in college. Summary of care and progress made toward goals: Most recent psychotropic medication recommendations: -Increase lithium to 600 mg at bedtime. -Continue hydroxyzine 23 mg TID as needed for anxiety. -Continue Zoloft 175 mg daily. Psychotropic medication trials: Celexa Lexapro Latuda Prozac Buspar Clonidine All treatment decisions were made mutually with the patient/patient's decision maker and informed consent was obtained at the time treatment decisions were made. The patient was informed that they may be transferring resident physicians and expressed understanding and agreement of the potential transfer. The following resources are also available: Options for mental health services in the [facility] - please note this is not a comprehensive list: [place] [facility] [phone] [facility] [phone] [facility] [phone] [facility] [phone] [place] [facility] [phone] [facility] [phone] [facility] [phone] Frederic Pruitt, PhD [phone] [facility] [phone] [facility] [phone] [facility] [phone] [facility] [phone] [facility] [phone] [facility] [phone] [facility] [phone] Jaime Sams DO 11/29/24 [facility] Department of Psychiatry Every effort was made to ensure the accuracy of this documentation, though grammatical/semantic errors may be present due to utilization of special projects manager/dictation software. Please see attending note/attestation for additional information/plan. [facility] 11-07-2024 Evaluation note Diagnosis Onset Date Resolution Otitis media acute November 07 10:30am Sinusitis, acute maxillary acute January 08, 2025 9:05am [facility] Work Phone: 1(506) 925-344504-21-2025 Note Attestation signed by Evelyn Cook MD at 10/02/2024 4:45 PM By using the attestations below, the signing clinician agrees that I have read and verify that the documentation has been personally reviewed by me and ensure that the documentation accurately reflects the encounter. GC: I personally saw this patient on the day of the encounter, performed the vee portion(s) of the service and participated in the management and confirm the resident's documentation. Please note there may be an additional personal documentation from me. Additional Comments: Pt reports he lives at home with family , and they are aware of his mood sx. Discussed safety plan and will go up on lithium as it is helpful with suicidal thoughts, do not want to increase antidepressant without mood stabilizer at adequate dose. Note pt denies suicidal thoughts since 2 weeks ago. Department of Psychiatry Outpatient Progress Note Time In: 3:04 PM Time Out: 3:32 PM Present At Visit: Patient Clinician Location: Resident in office and Attending in office Patient and/or guardian consents to telehealth services at [facility]. The risks and benefits of telehealth were discussed with patient and patient verbalized understanding. Clinician verified patient's identity, location, and phone number at the start of the patient's visit. This visit was conducted with the use of HIPAA compliant audio and/or video technology. Service delivery type:video Patient Location: at home address in chart Patient in [place] Yes Patient Phone Number: [phone] SUBJECTIVE CC: Chief Complaint Patient presents with [facility] [employer] Telehealth Audio/video Visit HPI: Guido Tovar is a 18 y.o. male presenting to the [facility] Psychiatry Clinic on 10/02/24 for management of generalized anxiety disorder, PTSD, major depressive disorder with two past admission to [facility]. The patient was first seen in the clinic on 02/2022. At the last appointment on 08/2024, the following recommendations were made: - DISCONTINUE [place] 300 mg at bedtime for mood due to patient reported overall mood improvement and feels that lithium is no longer needed. - CONTINUE Hydroxyzine 25 mg (1-3 tabs) as needed for anxiety - Continue Zoloft 175 mg at night for Depression and Anxiety Since the last visit, the patient's condition has worsened. Guido reports that his mood took a turn for the worst when lithium was discontinued. He reports that he had a period of 2 days in which he did not sleep and was up cleaning all night with increased goal directed thoughts with flight of ideas. He denies auditory or visual hallucinations during that time. He reports that he now feels depressed and has been sleeping all night and taking a two hour nap during the day. He states that his decreased motivation led to him getting behind on coursework the past couple weeks. He reports that he has been taking hydroxyzine 1x per night. He reports that he has had fleeting thoughts of with no plan or intent for suicide. He reports that he lives with his parents and they have been noting his behavior. He reports that he feels safe at home and notices that this shift in his mood is temporary and can be resolved with medication. Guido reports that he has been taking his medications appropriately. He denies any feelings of helplessness, hopelessness, pervasive sadness. He reports feelings of guilt or low energy, anhedonia, difficulties with concentration. He denies any suicidal ideation, plan, or intent. He reports some generalized worry, mainly focused on his upcoming college classes. Denies panic attacks. Patient reports that his appetite is stable and he has no other questions or concerns at this time. Past medication trials: Celexa, Lexapro, Latuda - increased depressed. Began having suicidal ideations on Latuda, tried for a couple days. Prozac, buspar, clonidine * Suicide attempts: 2019, 2020. KOB x2 for psychiatric hospitalization. --- Onset/Timing: Chronic Context: Psychosocial stressors Severity: Moderate --- Mood: No anhedonia, No decreased need for sleep, No crying spells, No excessive excitement, No hopelessness, No impulsivity, No irritability, No mood lability, No restlessness, No risk taking behavior, No sadness, and No suicidal ideations Anxiety: No agoraphobia, No compulsions, No compulsive behavior, No obsessions, No obsessive thoughts, and Generalized worry Trauma/Abuse: No abuse reported Cognition: No agitation and No paranoia Sleep: No early awakenings, Not hypersomnolent, and No insomnia Lifestyle Habits: Attempts healthy eating, Regular exercise, and Structured routine of day --- Individualized Service Plan (ISP): Treatment Plan Revision Date: 01/17/24 Review Date: 01/16/25 Service (more content not included)...[facility] 09-22-2024 Evaluation note* Diagnosis Onset Date Resolution Status Admit Date Gastroenteritis acute September 11:41am Otitis media acute November 07 10:30am [facility] Work Phone: 1(736) 792-356303-03-2025 Note Attestation signed by Evelyn Cook MD at 08/14/2024 3:53 PM By using the attestations below, the signing clinician agrees that I have read and verify that the documentation has been personally reviewed by me and ensure that the documentation accurately reflects the encounter. GC: I personally saw this patient via video conference application on the day of the encounter, performed the vee portion(s) of the service and participated in the management and confirm the resident's documentation. Physical examination is limited by video interpretation. Please note there may be an additional personal documentation from me. Additional Comments: agree with stopping lithium and will monitor depressive sx. Department of Psychiatry Outpatient Progress Note Time In: 228 PM Time Out: 246 PM Present At Visit: Patient Clinician Location: Resident in office and Attending in office Patient and/or guardian consents to telehealth services at [facility]. The risks and benefits of telehealth were discussed with patient and patient verbalized understanding. Clinician verified patient's identity, location, and phone number at the start of the patient's visit. This visit was conducted with the use of HIPAA compliant audio and/or video technology. Service delivery type:video Patient Location: at home address in [facility] Patient in [place] Yes Patient Phone Number: [phone] SUBJECTIVE CC: Chief Complaint Patient presents with Med Management HPI: Guido Tovar is a 18 y.o. male presenting to the [facility] Psychiatry Clinic on 08/14/24 for management of generalized anxiety disorder, PTSD, major depressive disorder with two past admission to [facility]. The patient was first seen in the clinic on 02/2022. At the last appointment on 01/17/2024, the following recommendations were made: - CONTINUE [place] 300 mg at bedtime for mood. Labs drawn on 09/16/21 (0.2 per report) Patient reports he is seeing his PCP annually for follow up and labs - CONTINUE Hydroxyzine 25 mg (1-3 tabs) as needed for anxiety - Continue Zoloft 175 mg at night for Depression and Anxiety -Formally discontinue Mirtazepine 7.5 mg po nightly for sleeping difficulties and mood. The patient reports that he only took mirtazapine for approximately 1 week due to worsening apathy. The patient reports improvement of symptoms after discontinuation. Since the last visit, the patient's condition has remained stable. Guido reports that things have been going well since our last visit. He reports that he continues with college and has a 4.0 GPA. He reports that he will be celebrating his one year anniversary with his girlfriend next week. He reports that he is open to discontinuing his lithium at this time because he has been doing well. He reports that he takes his hydroxyzine 1x per day at bedtime. Guido reports that he has been taking his medications appropriately. He denies any feelings of helplessness, hopelessness, pervasive sadness. He denies any feelings of guilt or low energy, anhedonia, difficulties with concentration. He denies any suicidal ideation, plan, or intent. He reports that Zoloft is helping control his symptoms of depression and have improved his stress tolerance. He reports some generalized worry, mainly focused on his upcoming college classes. Denies panic attacks. Patient reports that his appetite is stable and he has no other questions or concerns at this time. Past medication trials: Celexa, Lexapro, Latuda - increased depressed. Began having suicidal ideations on Latuda, tried for a couple days. Prozac, buspar, clonidine * Suicide attempts: 2019, 2020. KOB x2 for psychiatric hospitalization. --- Onset/Timing: Chronic Context: Psychosocial stressors Severity: Moderate --- Mood: No anhedonia, No decreased need for sleep, No crying spells, No excessive excitement, No hopelessness, No impulsivity, No irritability, No mood lability, No restlessness, No risk taking behavior, No sadness, and No suicidal ideations Anxiety: No agoraphobia, No compulsions, No compulsive behavior, No obsessions, No obsessive thoughts, and Generalized worry Trauma/Abuse: No abuse reported Cognition: No agitation and No paranoia Sleep: No early awakenings, Not hypersomnolent, and No insomnia Lifestyle Habits: Attempts healthy eating, Regular exercise, and Structured routine of day --- Individualized Service Plan (ISP): Treatment Plan Revision Date: 01/17/24 Review Date: 01/16/25 Service Provider: Dr. Jaime Sams Service Frequency: 6+ Weeks Patient's Needs: depression, anxiety, mood management Strengths or Assets: active in treatment, compliant with medciations Patient's Stated Goals: continue to be stable Required Objective: Patient will achieve/maintain a PHQ (more content not included)...[facility]08-05-2024 [id number] Guido Tovar 2005 M Date Provider Department [place] 01/17/2024 JAIME BROOKS [facility] PSYCH Mick Heal No family history on file Level of Service:31617 [place] OFFICE/OUTPATIENT ESTABLISHED MOD MDM 30 MIN (GC) Reason for Visit and Comments: Med Management [[id number]][facility]08-05-2024 Note Attestation signed by Sondra Bower MD at 01/19/2024 9:00 AM GC: I saw this patient. I personally was physically present for the critical/vee portions that determines the level of service. I was directly involved in the management and treatment plan of the patient. I reviewed K.Chrissy 's note and agree with the documentation Department of Psychiatry Outpatient Progress Note Time In: 204 Time Out: 236 Present At Visit: Patient Clinician Location: Resident in office and Attending in office Patient Location: In office SUBJECTIVE CC: Chief Complaint Patient presents with Med Management HPI: Guido Tovar is a 18 y.o. male presenting to the [facility] on 01/17/24 for management of generalized anxiety disorder, PTSD, major depressive disorder with two past admission to [facility]. The patient was first seen in the clinic on 02/2022. At the last appointment on 10/25/2023, the following recommendations were made: - CONTINUE [place] 300 mg at bedtime for mood. Labs drawn on 09/16/21 (0.2 per report) Patient reports he is seeing his PCP annually for follow up and labs - Ordered [place] levels today. Patient strongly advised to get lithium/cmp labs prior to next visit. - May consider switching to Lamictal on follow up appointment - CONTINUE Hydroxyzine 25 mg (1-3 tabs) as needed for anxiety - CONTINUE Zoloft 175 mg at night for Depression and Anxiety - START Mirtazepine 7.5 mg po nightly for sleeping difficulties and mood Since the last visit, the patient's condition has remained stable Guido reports that he will be starting college this month he will be attending [employer] which is approximately 2 hours from [facility]. 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 He reports that both of his parents work and education. He reports that he recently won a $5000 scholarship from telling his story which has helped pay for his first semester of school. He reports that he had to discontinue the mirtazapine due to feeling apathetic. He reports that his sleep has improved after getting fans for his room and he is no longer struggling with sleep. He reports that he was able to get a lithium level and other labs completed at [place] about 2 months ago. The patient reports that he will be giving database report writer the lab results. Guido reports that he has been taking his medications appropriately. He denies any feelings of helplessness, hopelessness, pervasive sadness. He denies any feelings of guilt or low energy, anhedonia, difficulties with concentration. He denies any suicidal ideation, plan, or intent. He reports that lithium and Zoloft are extremely effective in helping control his symptoms of depression and have improved his stress tolerance. The patient was made aware that blood work must be obtained and given to database report writer prior to the next appointment if lithium is to be continued. He reports some generalized worry, mainly focused on his upcoming college classes. Denies panic attacks. Patient reports that his appetite is stable and he has no other questions or concerns at this time. Past medication trials: Celexa, Lexapro, Latuda - increased depressed. Began having suicidal ideations on Latuda, tried for a couple days. Prozac, buspar, clonidine * Suicide attempts: 2019, 2020. KOB x2 for psychiatric hospitalization. --- Onset/Timing: Chronic Context: Psychosocial stressors Severity: Moderate --- Mood: No anhedonia, No decreased need for sleep, No crying spells, No excessive excitement, No hopelessness, No impulsivity, No irritability, No mood lability, No restlessness, No risk taking behavior, No sadness, and No suicidal ideations Anxiety: No agoraphobia, No compulsions, No compulsive behavior, No obsessions, No obsessive thoughts, and Generalized worry Trauma/Abuse: No abuse reported Cognition: No agitation and No paranoia Sleep: No early awakenings, Not hypersomnolent, and No insomnia Lifestyle Habits: Attempts healthy eating, Regular exercise, and Structured routine of day --- Individualized Service Plan (ISP): Treatment Plan Revision Date: 01/17/24 Review Date: 01/16/25 Service Provider: Dr. Jaime Sams Service Frequency: 6+ Weeks Patient's Needs: depression, anxiety, mood management Strengths or Assets: active in treatment, compliant with medciations Patient's Stated Goals: continue to be stable Required Objective: Patient will achieve/maintain a PHQ-9 score of Moderate (10-14) over the next year. Mood Objective: Patient will report satisfaction with symptoms of depression or mood at each visit over the next 12 months. Anxiety Objective: Patient will report 6-8 ho (more content not included)... 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 Resident the patient is being transferred to: Jaime Sams Summary of relevant biopsychosocial status at transfer or discharge: Patient is a 17 y.o., , single, male with a past psychiatric history of generalized anxiety, PTSD, major depressive disorder with 2 past [facility] admissions for evaluation of worsening anxiety and depression symptoms. 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 History; 2 past admissions to [facility], 3-4 years ago. Summary of care and progress made toward goals: Patient's mood or anxiety is currently at goal/stable with current medication regimen. Patient is low at risk for suicide or homicide, and does not meet criteria for inpatient psychiatric hospitalization. Continue with outpatient management All treatment decisions were made mutually with the patient/patient's decision maker and informed consent was obtained at the time treatment decisions were made. The patient was informed that they will be transferring resident physicians and expressed understanding and agreement of the transfer. The following resources are also available and are made aware to the patient/patient's decision maker: Options for mental health services in the [facility] - please note this is not a comprehensive list: [place] [facility] [phone] [facility] [phone] [place] [facility] [phone] [facility] [phone] [place] [facility] [phone] Psychological [facility] [phone] [facility] [phone] Frederic Pruitt, PhD [phone] [facility] Remote Operations Producer [phone] [facility] [phone] [facility] [phone] [facility] [phone] [facility] [phone] [facility] [phone] [facility]al Services [phone] Jamey Ball MD [place] [facility] PGY-3 [facility] Hospital Discharge instructionsAmbulatory Orders* Referral to Gastroenterology Time Frame: 11/29/23, Location: None [facility] Work Phone: [phone]) 852-388912-07-2023 Evaluation note* Encounter Date Diagnosis Assessment Notes Treatment Notes Treatment Clinical Notes May, Viral URI (ICD-10 - J06.9) Reviewed with patient that physical exam and symptoms are consistent with a viral infection, which may last for 10-14 days. Encouraged to increase oral fluid intake to keep secretions thin. Recommended the use of Tylenol and Ibuprofen OTC for fevers. Recommended rest. Will treat with Fluticasone nasal spray and directed on use.. Pt encouraged to seek reevaluation with primary care provider if symptoms persist beyond 14 days without any improvement, and if any fevers over 101 develop [facility] Other 02-27-2023 Evaluation note* Encounter Date Diagnosis Assessment Notes Treatment Notes Treatment Clinical Notes Jul, Viral URI (ICD-10 - J06.9) Symptoms appear viral today. Continue to use Tylenol and ibuprofen for general discomfort. Encourage fluids and rest. Symptoms should improve within the next 4-7 days. If no improvement of symptoms by 7-10 days, patient should follow up with PCP. Patient should follow up with PCP sooner if symptoms worsen. Patient verbalizes understanding and agreement with treatment plan. [facility] Other 01-06-2023 Evaluation note* Encounter Date Diagnosis Assessment Notes Treatment Notes Treatment Clinical Notes Jun, Acute non-recurrent maxillary sinusitis (ICD-10 - J01.00) [facility] Other 01-05-2023 Evaluation note* Encounter Date Diagnosis Assessment Notes Treatment Notes Treatment Clinical Notes Jun, Cough, unspecified type (ICD-10 - R05.9) [facility] Other 12-22-2022 NoteEchocardiology Procedure Exam Date/Time Accession # Ordering Dr. PARRY Pediatric Echo 06/04/2022 10:12 [facility] [id number] ERIKA CHAIDEZ MD Transthoracic Complete CPT code 44011 Reason for Exam (EC Pediatric Echo Transthoracic Complete) Chest pain R07.9 Report Version: 1 Study ID: [id number] Pediatric?Echocardiogram Report Name: GUIDO TOVAR Study Date: 06/04/2022, 9: 36 AM Patient Location: [facility] : 2005 (MM/DD/YYYY) Gender: Male Age: 16 Years Height: 170.18 cm Weight: 62.597 kg HR: 86 bpm BSA: 1.727 m? Ordering Physician: ERIKA CHAIDEZ Referring Physician: ERIKA CHAIDEZ Performed By: Yolanda Schwab RDCS Reason For Study: Chest pain R07.9 History: No cardiac history per patient Interpretation Summary No cardiac disease identified. Normal echocardiogram for age. Procedure A complete two-dimensional transthoracic pediatric echocardiogram was performed (2D, M-mode, Doppler and color flow Doppler). Cardiac Position Levocardia. Abdominal situs solitus. Atrial situs solitus. D Ventricular Loop. S Normal position great vessels. Veins Normal systemic venous drainage. At least one right and one left pulmonary vein seen draining normally into the left atrium. Atrium Normal right atrial size. Normal left atrial size. Intact atrial septum. Atrioventricular Valves Normal tricuspid valve. Normal mitral valve. Ventricles Echocardiology Report Normal right ventricle structure and size. Normal left ventricle structure and size. Intact ventricular septum. Semilunar Valves Normal pulmonic valve. Normal tricuspid aortic valve. Great Vessels No evidence of coarctation of the aorta. Aorta not well visualized. Normal pulmonary artery branches. No patent ductus arteriosus. Coronary Arteries Right and left coronary origins appear normal. Pericardial and Pleural Space No pericardial effusion. Function Normal right ventricular systolic function. Normal left ventricular systolic function. Inflow Hemodynamics Normal tricuspid valve velocity. Trivial tricuspid valve insufficiency. Normal mitral valve velocity. Trivial mitral valve insufficiency. Outflow Hemodynamics Normal pulmonic valve velocity. No pulmonic valve insufficiency. Normal aortic valve velocity. No aortic valve insufficiency. Other Measurements & Calculations ACS: 2.06 cm Ao max P.4 mmHg Ao root diam: 2.6 cm Ao V2 max: 104.5 cm/sec ALEXIS(V,D): 3.2 cm? FS: 48.5 % IVS/LVPW: 1.08 IVSd: 0.90 cm LA dimension: 2.40 cm LA/Ao: 0.92 LV mass(C)d: 127.2 grams LV V1 max: 89.5 cm/sec LV V1 max P.2 mmHg LVIDd: 4.5 cm LVIDs: 2.33 cm LVOT area: 3.8 cm? LVOT diam: 2.19 cm LVPWd: 0.83 cm PA max P.1 mmHg PA V2 max: 100.8 cm/sec RV V1 max: 75.0 cm/sec RV V1 max P.25 mmHg Electronically signed by: Maddie Mello MD 06/04/2022, 3: 03 PM FINAL REPORT Dictated: 06/04/2022 9:36 am Maddie Mello DO Signed (Electronic Signature): 06/04/2022 3:03 pm Signed by: Maddie Mello DO Transcribed by: RUT Technologist: [facility]11-14-2021 Evaluation note* Encounter Date Diagnosis Assessment Notes Treatment Notes Treatment Clinical Notes Apr, Sore throat (ICD-10 - J02.9) Apr, Sinusitis, unspecified chronicity, unspecified location (ICD-10 - J32.9) [facility] Other 09-07-2021 NoteMR#: [id number] I [facility] Pt. Name: Guido Tovar Admitted: 02/12/2021 Discharged: Date of : 2005 Physician: Cosme Mendoza M.D. DISCHARGE SUMMARY Attending Physician: Cosme Mendoza MD Resident Physician: Adolfo Myers DO Patient Name: Guido Tovar Patient : 2005 Patient Admission Date: 02/12/2021 Discharge Date: 02/18/2021 SUBJECTIVE: HISTORY OF PRESENT ILLNESS: Patient is a 14-year-old, , single, male with a past psychiatric history of generalized anxiety disorder, major depressive disorder, PTSD last admitted to [facility] on 07/25/20 who presented to [facility] as a direct admission for evaluation of worsening anxiety and depression symptoms. Patient has increasing symptoms of depression and anxiety for the past 3 months secondary to his long-term girlfriend of one year breaking up with him. Within the past three months there has been miscommunication signals between the patient and the girlfriend regarding if they are getting back together or not and this has caused him severe anxiety and sadness per mother. Patient emailed her a note yesterday expressing his feelings and wanting to get back together with her but she never responded. Today was the first day of school and the patient saw the girlfriend and asked if she had seen the note, she replied I dont want to ever talk to you again. This upset the patient and caused him to feel like he just wanted to give up and that there was no point in living. Since yesterday afternoon he has had these persistent thoughts of suicide and last night thought of a plan of attempting to choke himself with a belt. He did not rehearse or attempt to act on this plan. These thoughts prompted mom to bring the patient to therapy today where he was then direct admitted to [facility]. He admits to current ideation but has no intent or plan while in [facility]. Per patient he feels like he has disappointed the girlfriend and that he has a bad person. He also has been having increasing worry and anxious thoughts about when he will be able to see her again or speak to her. For the past three months these thoughts have turned into daily obsessions that have become bothersome and effect his ability to concentrated on tasks. Guido has not found any activities have distracted him from these obsessions or alleviated the need to think about her. His psychiatrist discussed possibly starting a medication for OCD today during therapy secondary to these obsessions. He also has had increasing sleep difficulties over the past three months, since last night he has been having positive dreams of the girlfriend making it hard for him to want to wake up or get out of bed. Per mother and patient his symptoms of PTSD have been improving throughout the past few months. He still enjoys hanging out with his friends and participating in band at school. He feels supported by his friends and family at home. Since his last admission he has been going to weekly therapy, both the patient and mother have seen improvement with therapy. He has been taking Abilify since his last admission, initially he was on 5mg but it was increased to 7mg in November. He has also been taking Hydroxyzine 25mg for the past few months, it was increased to 50mg BID today. Patient has also been taking 0.1mg of Clonidine nightly since last admission. Patient and mother both have noted improvement overall in mood and anxiety with these medications. Mode of Transport to the Hospital: Drove with mother Current Psychiatric Medication: 7mg Abilify at night, 0.1mg of Clonidine once night, 50mg BID Hydroxyzine PRN medication prior to evaluation: N/A Collateral Information: Per mom the ex-girlfriend is not nice person per multiple adults and this is why she and the rest of his family do not want him speaking to her any longer. She believes the girlfriend would say mean things to her son including telling him that he shouldnt be struggling with his mental health because he has support unlike her. She notes he has excellent communication about his feelings with her. POA/Legal Guardian: Mother PSYCHIATRIC REVIEW OF SYSTEMS: The patient endorses symptoms of depression including pervasive sadness, changes in sleep, feelings of guilt, decreased energy, decreased concentration, feelings of hopelessness or helplessness, and suicidal ideation. Denies anhedonia. The patient denies symptoms of martha including manic episodes, decreased need for sleep, distractibility, impulsivity, grandiosity, flight of ideas, increased goal-directed activity, and pressured speech. The patient denies symptoms of psychosis including auditory hallucinations, visual hallucinations, and delusions. The patient denies paranoia. The patient endorses symptoms of anxiety including excessive worry, difficulty controlling worry, restlessn (more content not included)...[facility]03-01-2021 NoteMR#: [id number] I [facility] Pt. Name: Guido Tovar Admitted: 07/23/2020 Discharged: 07/25/2020 Date of : 2005 Physician: Cosme Mendoza M.D. DISCHARGE SUMMARY Patient is a 14-year-old, , single, male with a past psychiatric history of generalized anxiety disorder major depressive disorder who presented to [facility] as a direct admission for evaluation of worsening anxiety and depression symptoms. Patient states that for the last 2 weeks he has been experiencing significantly worse symptoms of depression and anxiety and states that they have led to having thoughts about hurting himself. Patient states that he does not intend on acting on any of the suicidal thoughts but has noticed that these thoughts have progressed rapidly since he has been changing medications frequently. Patient states that he was previously on 10 mg of Lexapro and then went off of that for 1 year. Patient was then put on BuSpar which he took for short period of time and then discontinued it. Patient was then started on Prozac at the end of this last year and states that he was doing okay on 10 mg but when his physician took him to 20 mg he started experiencing extreme symptoms of depression and anxiety. Patient was then taken off of Prozac and put on Celexa to which the patient states he did not respond well to that medication as it was not working for him. Patient was started on Latuda 1 week ago to which the patient says it makes him feel very foggy minded. Last night patient reported around 2 AM to his mother that he was having very intense suicidal thoughts. Patient was ruminating all night with thoughts about dying. Patient's next scheduled outpatient psychiatric appointment was on Wednesday however since he has been having such intense suicidal thoughts he was worried that he would act on them told his mother who then brought him to the hospital for inpatient psychiatric hospitalization to stabilize medications. At this time patient states that his mood is anxious and depressed. Patient's affect is congruent with the stated mood as he appears to have a depressed affect and is fidgeting anxiously when being interviewed. Patient states that he is currently experiencing suicidal thoughts although he is denying any intent or plan to act on these thoughts. Patient is currently denying any homicidal ideations. Patient is currently denying any auditory visual hallucinations. Patient is currently denying any paranoia or delusional thought content. Patient states that his sleep has been poor and that his appetite is been fluctuating. Patient is currently denying ever having any episodes of martha/hypomania. Patient is currently endorsing suicidal ideation, loss of interest in previously enjoyable activities, feelings of guilt, decreased energy, difficulty concentrating, fluctuating appetite, and poor sleep. Patient is also currently endorsing overwhelming anxiety when dealing with simple tasks that he is normally able to handle such as completing his schoolwork. Per collateral (patient's mother): Collateral states that the patient has been struggling to focus in school and is normally very bright student academically but recently has been struggling to finish his work due to his depression and overwhelming anxiety. Collateral states that a few weeks ago the patient had woken up in the middle the night and went on a midnight bike ride by himself which was very out of character for the patient to do. Collateral states that the patient was found by secretary of police riding his bicycle through town and that he was brought home by the secretary of police to which the patient stated that he does not even remember leaving the house to go on a bike ride. Collateral states that she has noticed that the patient has been struggling to lately and that once he does eventually get to sleep which will usually be very late in the night that it would be difficult to arouse in the next morning. *Suicide Risk Factors Family suicidal history (Ideation, Intention, Access to means), Physical condition, Recent Loss, Stress/anxiety, Family stressors, History of attempts, Relationship with significant others, History of sexual/physical abuse, Impulsivity, History of aggression: No suicide risk factors noted on exam *Suicide Protective Factors: active in treatment, good physical health, cognitive stability, family/other psychosocial support, Hopefulness, taoist/spiritual values, personal commitments: Good physical health, cognitive stability, psychosocial support *Homicide Risk Factors (ideation, intent, access to means, previous attempts, drug/alcohol involvement, triggering factors, preparatory behavior): Denies Past psychiatric history: * Suicide/Homicide attempts: Denies * Inpatient/Outpatient treatment: Patient denies any previous inpatient psychiatric hosp (more content not included)...[facility] No data available for this section [facility] Other Evaluation noteNo InformationNohca midwest division [facility] Other Evaluation noteNo assessment information available [facility] Work Phone: Evaluation note* Diagnosis Onset Date Resolution Status Mass of right lobe of liver acute Mesenteric lymphadenitis acu te [facility] Work Phone: Evaluation note* Diagnosis Onset Date Resolution Status Mass of right lobe of liver acute Mesenteric lymphadenitis acu te Fatigue acute Hemangioma of liver acute Nausea acute [facility] Work Phone: Evaluation note* Diagnosis Onset Date Resolution Status Bilateral otitis media acute Contact with and (suspected) exposure to covid-19 noneactive Sore throat noneactive [facility] Work Phone: Evaluation note* Diagnosis Onset Date Resolution Status Bilateral otitis media acute Viral URI acute Contact with and (suspected) exposure to covid-19 noneactive Sore throat noneactive [facility] Work Phone: Evaluation note* Diagnosis Onset Date Resolution Status Bilateral otitis media acute Viral URI acute Contact with and (suspected) exposure to covid-19 noneactive Sore throat noneactive Sinusitis, acute maxillary a cute [facility] Work Phone: Evaluation note* Diagnosis Onset Date Resolution Status Bilateral otitis media acute Viral URI acute Contact with and (suspected) exposure to covid-19 noneactive Sore throat noneactive Sinusitis, acute maxillary a cute Sinusitis, acute maxillary a cute [facility] Work Phone: History general Narrative - [facility] Other History general Narrative - Reported* Type Description Date Medical History chronic depression [facility] [place] Other Hisbtul general Narrative - Reported* Type Description Date Medical History chronic depression Surgical History No Surgical history information [facility] [place] Other Hospital Discharge instructions No data [facility] for this [facility] available for this [facility]arrative)No reason for referral [facility] Work Phone: Summary Purpose Family History Relationship Condition Age at Onset Recorded Date/T heraclio Not Specified Myocardial infarction Unknown Not Specified Malignant neoplasm Unknown Hypertension Unknown Cerebrovascular accident (CVA) Unknown Relationship Condition Age at Onset Recorded Date/T heraclio Not Specified Myocardial infarction Unknown maternal grandmother Malignant neoplasm Unknown Hypertension Unknown Cerebrovascular accident (CVA) Unknown paternal grandmother Malignant neoplasm Unknown Advance Directives Advance Directive Response Recorded Date/ Time Advance Directives No November 08 10:45am Advance Directive Response Recorded Date/ Time Advance Directives No March 20, 2024 9:28am Chief Complaint and Reason for Visit Chief Complaint [facility] f/u, Kidney stok es, leasion on liver Chief Complaint [facility] f/u, Kidney stok es, leasion on liver R16.0 Reason for Visit Mass of right lobe o f liver Mesenteric lymphadenitis Chief Complaint [facility] f/u, Kidney stok es, leasion on liver R16.0 nausea, sweats, had MRI Fri. Reason for Visit Mass of right lobe o f liver Mesenteric lymphadenitis Fatigue Hemangioma of liver Nausea Chief Complaint Sinus congestion, so re throat, ear pain Reason for Visit Bilateral otitis med ia Contact with and (suspected) exposure to covid-19 Sore throat Chief Complaint Sinus congestion, so re throat, ear pain Sore Throat Reason for Visit Bilateral otitis med ia Viral URI Contact with and (suspected) exposure to covid-19 Sore throat Chief Complaint Sinus congestion, so re throat, ear pain Sore Throat sore throat, fever r/o pneumonia Reason for Visit Bilateral otitis med ia Viral URI Contact with and (suspected) exposure to covid-19 Sore throat Sinusitis, acute maxillary Chief Complaint Sinus congestion, so re throat, ear pain Sore Throat sore throat, fever r/o pneumonia Reason for Visit Bilateral otitis med ia Viral URI Contact with and (suspected) exposure to covid-19 Sore throat Sinusitis, acute maxillary Sinusitis, acute maxillary Chief Complaint Admit Date Nausea/Vomiting September 22, 2024 11: 41am Chief Complaint Admit Date Nausea/Vomiting September 22, 2024 11: 41am headache, upset stomach, fever November 07, 2024 10:30am Reason for Visit Admit Date Gastroenteritis September 22, 2024 11: 41am Otitis media November 07, 2024 10:30 am Chief Complaint Admit Date headache, upset stomach, fever November 07, 2024 10:30am sore throat, chest congestion January 08, 2025 9:05am Reason for Visit Admit Date Otitis media November 07, 2024 10:30 am Sinusitis, acute maxillary January 08 9:05am Chief Complaint Admit Date headache, upset stomach, fever November 07, 2024 10:30am sore throat, chest congestion January 08, 2025 9:05am Symptoms Worsening January 10, 2025 1:00 pm Additional Source Comments (unrecognized sect ion and content) No Status Records FoundNo Status Records FoundNo Status Records FoundNo Status Records FoundNo Status Records FoundNo Status Records Found INFORMATION SOURCE (unrecogn ized section and content) DATE CREATED AUTHOR 02/28/2021 [facility] DATE CREATED AUTHOR AUTHOR'S ORGANIZ ATION 06/03/2022 [facility] DATE CREATED AUTHOR AUTHOR'S ORGANIZ ATION 06/06/2022 [facility] DATE CREATED AUTHOR AUTHOR'S ORGANIZ ATION 06/09/2022 [facility] DATE CREATED AUTHOR AUTHOR'S ORGANIZ ATION 04/19/2024 [facility] DATE CREATED AUTHOR AUTHOR'S ORGANIZ ATION 12/02/2024 [facility] REASON FOR VISIT (unrecogniz ed section and content) #20 CONGESTION, SORE THROAT, HAS GOTTEN WORSE SINCE LAST VISITCovid testnote for schoolSinuses/ Sick [phone]/ Sickschool noteSore Throat- COVID Negative Patient Care team informatio n (unrecognized section and content) Team Status: Active Member Role Status Dates Erika Chaidez MD Primary Care Provider Active Team Status: Inactive Member Role Status Lexie Chaidez MD Primary Care Provider Active Start: March 08, 2024 End: March 08, 2024 Ashli Jeff APRN Attending Provider Active S tart: March 08, 2024 End: March 08, 2024 Team Status: Active Member Role Status Lexie Chaidez MD Primary Care Provider Active Start: November 03, 2023 Afua Sherman PA-C Attending Provider Active Start: November 03, 2023 Team Status: Inactive Member Role Status Lexie Chaidez MD Primary Care Provide r, Attending Provider Active Start: November 09, 2023 End: November 09, 2023 Team Status: Inactive Member Role Status Lexie Chaidez MD Primary Care Provide r, Attending Provider Active Start: November 26, 2023 End: November 26, 2023 Team Status: Inactive Member Role Status Lexie Chaidez MD Primary Care Provider Active Start: November 29, 2023 End: November 29, 2023 KAM HighC Attending Provider Act brett Start: November 29, 2023 End: November 29, 2023 Team Status: Inactive Member Role Status Lexie Chaidez MD Primary Care Provide r, Attending Provider Active Start: March 20, 2024 End: March 20, 2024 Team Status: Inactive Member Role Status Lexie Chaidez MD Primary Care Provider Active Start: April 12, 2024 End: April 12, 2024 Ashli Jeff APRN Attending Provider Active S tart: April 12, 2024 End: April 12, 2024 Team Status: Active Member Role Status Lexie Chaidez MD Primary Care Provider Active Start: April 12, 2024 Ashli Jeff APRN Attending Provider Active S tart: April 12, 2024 Team Status: Inactive Member Role Status Lexie Chaidez MD Primary Care Provide r, Attending Provider Active Start: September 22, 2024 End: September 22, 2024 Team Status: Inactive Member Role Status Lexie Chaidez MD Primary Care Provider Active Start: November 07, 2024 End: November 07, 2024 Leatha Elena APRN [employer] Attending Provider Act brett Start: November 07, 2024 End: November 07, 2024 Team Status: Inactive Member Role Status Dates Erika Chaidez MD Primary Care Provider Active Start: January 08, 2025 End: January 08, 2025 Erika Chaidez MD Attending Provider Active St art: January 08, 2025 End: January 08, 2025 Team Status: Inactive Member Role Status Dates Erika Chaidez MD Primary Care Provider Active Start: January 10, 2025 End: January 10, 2025 Erika Chaidez MD Attending Provider Active St art: January 10, 2025 End: January 10, 2025 Goals (unrecognized section and content) Goals may be documented in a n alternate section FOR RECORDS PERTAINING TO PATIENTS WHO ARE OR HAVE BEEN ENROLLED IN A CHEMICAL DEPENDENCY/SUBSTANCEABUSE PROGRAM, SOME INFORMATION MAY BE OMITTED. This clinical summary was aggregated from multiple sources. Caution should be exercised in using it in the provision of clinical care. This summary normalizes information from multiple sources, and as a consequence, information in this document may materially change the coding, format and clinical context of patient data. In addition, data may be omitted in some cases. CLINICAL DECISIONS SHOULD BE BASED ON THE PRIMARY CLINICAL RECORDS. [facility] [employer] [facility]. provides no warranty or guarantee of the accuracy or completeness of information in this document.
--- NOTE | 2025-03-18 04:45 | XR_ITS ---
The [address] [address] Patient Name: DARIN TOVAR MRN: [id number] date: 2005 Sex: M Assigned Patient Location: ER Current Patient Location: ED.MAIN Accession/Order Number: [id number] Exam Date: 03/18/2025 04:48 Report Date: 03/18/2025 08:35 At the request of: NASIMA NEGRON MD Procedure: XR abdomen 1V KUB: CLINICAL INFORMATION: Abdominal pain COMPARISON: None FINDINGS: No bowel obstruction or free air. Osseous structures are grossly intact. XR/XR abdomen 1V IMPRESSION: No acute process. Impression dictated by: Cullen Morgan Jr., D.OPortillo 03/18/2025 8:35 AM Dictation Location: [facility] [employer] [facility] Electronically authenticated by: [id number] Y Date: 03/18/2025 08:35
--- NOTE | 2025-03-18 04:46 | ED.GENADUL1 ---
HPI HPI - General Adult General Chief complaint: Abdominal Pain Stated complaint: side pain Time Seen by Provider: 03/18/25 04:41 Source: patient Mode of arrival: walk-in Limitations: no limitations History of Present Illness HPI narrative: 19-year-old male presents for pain in his left flank area. He states it started yesterday afternoon and got better last night about 10 PM. No injury or gross hematuria or dysuria. He has been told he has had kidney stones in the past but has never passed 1. He has been constipated recently and took a laxative and had a bowel movement last night. Related Data Home Medications ?Medication ?Instructions ?Recorded ?Confirmed hydroxyzine HCl 25 mg tablet 25 mg PO .hs 11/03/23 03/18/25 lithium carbonate 300 mg capsule 300 mg PO .hs 11/03/23 03/18/25 sertraline 100 mg tablet 150 mg PO DAILY 11/03/23 03/18/25 sertraline 50 mg tablet 25 mg PO DAILY 11/03/23 11/03/23 Previous Rx's ?Medication ?Instructions ?Recorded ondansetron 4 mg disintegrating 4 mg PO Q6H PRN nausea and 11/03/23 tablet vomiting #12 tabs Allergies Allergy/AdvReac Type Severity Reaction Status Date / Time codeine AdvReac Mild Unresponsiv Verified 03/18/25 04:35 e Opioid HPI Opioid Management Most Recent Opioid Data: Last Pain Scale 7 Today, 05:35 Last ED Pain Assessment Today, 04:40 Last MAR Pain Assessment Today, 05:35 Review of Systems ROS Narrative A ten point review of systems is negative except as noted above. PFSH PFSH Social History Little interest or pleasure in doing things: not at all Feeling down, depressed, or hopeless: not at all Exam Narrative Exam Narrative: Nurses note and vital signs reviewed and patient is not hypoxic. General:The patient appears well and in no apparent distress.Patient is resting comfortably on cart. Skin:Warm, dry, no pallor noted.There is no rash noted including the flank area. Head:Normocephalic, atraumatic Eye: Normal conjunctiva, no drainage Ears, Nose, Mouth, and Throat: oral mucosa is moist. Nares patent. Cardiovascular:Regular Rate and Rhythm Respiratory:Patient is in no distress, no accessory muscle use, lungs are clear to auscultation, no wheezing, rales or rhonchi Back:non-tender along the thoracic and lumbar spines GI: Soft and nontender nondistended. No palpable tenderness in the flank area Musculoskeletal: The patient has no evidence of calf tenderness, no pitting edema, symmetrical pulses noted bilaterally Neurological:A&O, normal speech Psychiatric:Cooperative Constitutional Vital Signs, click to edit/add: Last Vital Signs Temp 98.0 F 03/18/25 04:30 Pulse 90 03/18/25 04:30 Resp 16 03/18/25 04:30 BP 140/84 03/18/25 04:30 Pulse Ox 98 03/18/25 04:30 O2 Del Method Room Air 03/18/25 04:30 Course Vital Signs Vital signs: Vital Signs Temperature 98.0 F 03/18/25 04:30 Pulse Rate 90 03/18/25 04:30 Respiratory Rate 16 03/18/25 04:30 Blood Pressure 140/84 03/18/25 04:30 Pulse Oximetry 98 03/18/25 04:30 Oxygen Delivery Method Room Air 03/18/25 04:30 Temperature 98.0 F 03/18/25 04:30 Pulse Rate 90 03/18/25 04:30 Respiratory Rate 16 03/18/25 04:30 Blood Pressure 140/84 03/18/25 04:30 Pulse Oximetry 98 03/18/25 04:30 Oxygen Delivery Method Room Air 03/18/25 04:30 Medical Decision Making MDM Narrative Medical decision making narrative: Blood work is normal. No blood in the urine. CT scan is pending and the patient is signed out to Dr. Bhatt at change of shift. Differential Diagnosis Differential Diagnosis: Constipation, kidney stone, muscle strain Lab Data Lab results reviewed: Yes I reviewed the patient's lab results Labs: Lab Results 03/18/25 03/18/25 Range/Units 04:45 05:05 WBC 10.0 (4.0-11.0) 10^3/uL RBC 4.87 (4.70-6.10) 10^6/uL Hgb 15.0 (14.0-18.0) g/dL Hct 42.5 (42.0-54.0) % MCV 87.3 (80.0-94.0) fL MCH 30.8 (25.9-34.0) pg MCHC 35.3 H (29.9-35.2) g/dL RDW 11.7 (11.0-15.0) % Plt Count 236 (150-450) 10^3/uL MPV 9.8 (9.5-13.5) fL Neut % (Auto) 55.8 (43.0-75.0) % Lymph % (Auto) 28.3 (20.5-60.0) % [place] % (Auto) 12.9 H (1.7-12.0) % Eos % (Auto) 1.8 (0.9-7.0) % Baso % (Auto) 0.9 (0.2-2.0) % Neut # (Auto) 5.6 (1.4-6.5) 10^3/uL Lymph # (Auto) 2.8 (1.2-3.8) 10^3/uL [place] # (Auto) 1.3 H (0.3-0.8) 10^3/uL Eos # (Auto) 0.2 (0.0-0.7) 10^3/uL Baso # (Auto) 0.1 (0.0-0.1) 10^3/uL Abs Immat Gran (auto) 0.03 (0.00-0.03) 10^3/uL Imm/Tot Granulo (auto) 0.3 (0.0-0.5) % Sodium 141 (136-145) mmol/L Potassium 4.5 (3.5-5.1) mmol/L Chloride 102 (98-107) mmol/L Carbon Dioxide 30.5 (21.0-32.0) mmol/L Anion Gap 13.0 BUN 14.0 (7.0-18.0) mg/dL Creatinine 0.98 (0.70-1.30) mg/dL Est GFR ( Amer) >60 (>=60 mL/min/1.73m^2) Est GFR (Non-Af Amer) >60 (>=60 mL/min/1.73m^2) BUN/Creatinine Ratio 14.3 Glucose 107 H (74-106) mg/dL Calcium 9.3 (8.5-10.1) mg/dL Urine Color Lt. yellow (YELLOW) Urine Clarity Clear (CLEAR) Urine pH 7.0 (5.0-9.0) Ur Specific [place] 1.020 (1.005-1.025) Urine Protein Negative (NEG/TRACE) mg/dL Urine Glucose (UA) Negative (NEGATIVE) mg/dL Urine Ketones Negative (NEGATIVE) mg/dL Urine Occult Blood Negative (NEGATIVE) Urine Nitrite Negative (NEGATIVE) Urine Bilirubin Negative (NEGATIVE) Urine Urobilinogen 0.2 (0.2-1.0) EU/dL Ur Leukocyte Esterase Negative (NEGATIVE) Urine RBC 0-2 (0-2) #/HPF Urine WBC 0-2 A (NONE SEEN) #/HPF Ur Squamous Epith Cells Rare (NONE/RARE) #/LPF Urine Crystals None seen (None Seen) #/HPF Amorphous Sediment Moderate Urine Bacteria Trace A (NONE SEEN) #/HPF Urine Casts None seen (NONE SEEN) #/LPF Urine Mucus Large A (NONE SEEN) Ur Culture Indicated? No Imaging Data Abdominal x-ray: My impression: No acute findings Discharge Plan Discharge Patient Disposition: Still a Patient
[2025-03-18 04:54] LABS: Glucose Urine UA NEGATIVE (NEGATIVE)
[2025-03-18 04:58] LABS: Cast Seen? NONE SEEN #/LPF (NONE SEEN); Crystals Seen? None Seen #/HPF (None Seen); Urine Culture Indicated NO
--- NOTE | 2025-03-18 04:58 | CT_ITS ---
The [address] [address] Patient Name: DARIN TOVAR MRN: [id number] date: 2005 Sex: M Assigned Patient Location: ER Current Patient Location: ED.MAIN Accession/Order Number: [id number] Exam Date: 03/18/2025 05:12 Report Date: 03/18/2025 09:06 At the request of: NASIMA NEGRON MD Procedure: CT abdomen pelvis w con CT ABDOMEN AND PELVIS WITH INTRAVENOUS CONTRAST: CLINICAL HISTORY: left sided pain COMPARISON: None TECHNIQUE: Spiral images were obtained through the abdomen and pelvis following the administration of intravenous contrast. This CT exam was performed using one or more following dose reduction techniques: Automated exposure control, adjustment of the mA and/or kV according to patient size, or use of iterative reconstruction technique. FINDINGS: Lung Bases: [No acute findings.] Organs:Presumed hemangioma involving the right lobe of the liver. Gallbladder pancreas spleen and adrenal glands appear unremarkable. Heterogeneous enhancement of the left kidney which appears to be due to obstructing calculus at the left UVJ measuring 3 mm. Right kidney appears unremarkable. GI: Stomach is grossly unremarkable. Small bowel appears nondilated. No acute colonic abnormality.[ Pelvis:[Urinary bladder and prostate gland appear unremarkable.] Peritoneum/Retroperitoneum:No free air or free fluid or lymphadenopathy.[ Abd wall/Bones:Abdominal wall demonstrates no acute findings.[Osseous structures demonstrate no acute findings. CT/CT abdomen pelvis w con IMPRESSION: Heterogeneous enhancement involving the left kidney which appears to be due to an obstructing calculus involving the left UVJ measuring 3 mm. Correlation with urinalysis is suggested as underlying pyelonephritis cannot BE excluded. Impression dictated by: Cullen Morgan Jr., DPortilloOPortillo 03/18/2025 9:06 AM Dictation Location: [employer] Electronically authenticated by: [id number] Y Date: 03/18/2025 09:06
[2025-03-18 05:11] LABS: Hematocrit 42.5 % (42.0-54.0); Hemoglobin 15.0 g/dL (14.0-18.0); Immature Granulocytes Abs Auto 0.03 10^3/uL (0.00-0.03); Immature Granulocytes Pct Auto 0.3 % (0.0-0.5); Lymphocytes Absolute Auto 2.8 10^3/uL (1.2-3.8); Mean Corpuscular HGB Conc 35.3 g/dL (29.9-35.2); Mean Corpuscular Hemoglobin 30.8 pg (25.9-34.0); Mean Corpuscular Volume 87.3 fL (80.0-94.0); Platelet Count 236 10^3/uL (150-450); Red Blood Count 4.87 10^6/uL (4.70-6.10); White Blood Count 10.0 10^3/uL (4.0-11.0)
[2025-03-18 05:19] LABS: Anion Gap 13.0; Blood Urea Nitrogen 14.0 mg/dL (7.0-18.0); Calcium 9.3 mg/dL (8.5-10.1); Carbon Dioxide 30.5 mmol/L (21.0-32.0); Chloride 102 mmol/L (98-107); Estimated GFR (African America >60 (>=60 mL/min/1.73m^2); Estimated GFR (Non-African Ame >60 (>=60 mL/min/1.73m^2); Glucose 107 mg/dL (74-106); Potassium 4.5 mmol/L (3.5-5.1); Sodium 141 mmol/L (136-145)
[2025-03-18] MEDS: KETOROLAC TROMETHAMINE 30 MG/ML VIAL IVP (05:35)
== END 2025-03-18 09:51 | disposition home or self-care (01) ==
PROVIDERS: Emergency Provider Emergency Medicine; PCP Family Medicine
DX: N13.2 Hydronephrosis with renal and ureteral calculous obstruction (principal); Z87.442 Personal history of urinary calculi
CPT/HCPCS: 36415; 74018; 74177; 80048; 81001; 85025; 96374; 99285; J1885; Q9967